=== PATIENT | male | born 1970 | race Caucasian/White ===

== ENCOUNTER 2023-07-15 07:57 | Observation (INO) | payer OTHER, SELFPAY ==
[2023-07-15] VITALS (14 sets, daily range): BP systolic 101–139; BP diastolic 63–95; PULSE 85–105; RESP 15–22; TEMP 36.4–37.1; O2SAT 93–100; BMI 29.5
--- NOTE | 2023-07-15 08:13 | EKG12_ITS ---
Test Reason : GENERAL Blood Pressure : / mmHG Vent. Rate : 097 BPM Atrial Rate : 097 BPM P-R Int : 156 ms QRS Dur : 080 ms QT Int : 324 ms P-R-T Axes : 013 -23 005 degrees QTc Int : 411 ms Normal sinus rhythm Inferior infarct , age undetermined Abnormal ECG Confirmed by QASIM MELARA, LIOR ([id number]), editorial project manager MEGAN GARCIA ([id number]) on 07/21/2023 7:02:51 AM Referred By: Confirmed By:SHRUTHI TRIPP MD
--- NOTE | 2023-07-15 08:15 | CT_ITS ---
STUDY: CTA CHEST REASON FOR EXAM: Male, 52 years old. Chest pain, tachycardia, suspect PE RADIATION DOSAGE (If Supplied By Facility): CTDIvol = ( 12.26 ) mGy, DLP = ( 401.15 ) mGycm TECHNIQUE: The examination was performed with the intravenous administration of IV 100mL Isovue-370. Post-processing of the angiographic images was performed, with multiplanar reformation and 3D reconstruction. Individualized dose optimization techniques were used for this CT. COMPARISON: None. FINDINGS: Small intraluminal filling defects in branches of the left upper lobe pulmonary artery. Normal thoracic aorta and visualized great vessels. There is no demonstrated aortic dissection. Normal heart and pericardium. Normal mediastinum. Normal hilar regions. Normal visualized trachea and bronchi. The lungs are well expanded. Small left pleural effusion with left basilar infiltrate. Normal chest wall structures. There are degenerative changes of thoracic spine. Normal visualized upper abdomen. CT/CTA Chest W/WO Contrast IMPRESSION: Small pulmonary emboli are seen in branches of the left upper lobe pulmonary artery. Small left pleural effusion with left basilar infiltrate. Electronically Signed: Hero Vasquez MD at 9:19 EST ,
--- NOTE | 2023-07-15 08:16 | EDS_ITS ---
HPI History of Present Illness Chief Complaint: Other, Pain/Inj Detail of Chief Complaint: Abrupt onset of pleuritic pain and shortness of breath this morning Informant: patient Onset/Context/Timing Onset: Hours Context: sudden Timing: Continuous Quality: Positive for Dyspnea on exertion; Negative for Orthopnea, PND or Wheezing Current Severity: Mild Maximum Severity: Moderate Worsened by: Exertion Relieved by: Nothing Associated Symptoms Negative for cough, rhinorrhea, post nasal drip, ear pain, fever, sore throat, subjective, chills, sweats, clear sputum, white sputum, yellow sputum or green sputum Chest Pain: Positive for Pleuritic (Posteriorly over the left lower lobe region) Narrative Narrative: Patient is a 52-year-old male with 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 He is presently on anticoagulant. He states he has not missed any doses. Father and 2 siblings have history of porphyruria. No known family history of breast cancer or lung cancer. Patient has no known history of cancer. His first DVT was diagnosed approximately 3 to 4 years ago. He denies any upper respiratory symptoms i.e. rhinorrhea, congestion, postnasal drainage sore throat. He denies cough. He denies fever, chills or night sweats. He denies abdominal pain, nausea, vomiting or diarrhea. He denies history of renal ureterolithiasis or family history of such. He den ies pain radiating to his groin. He denies dysuria, frequency, urgency or hematuria. There is no history of trauma. He denies leg pain, swelling or discoloration. PE Risk Factors: Positive for Prior DVT or PE; Negative for Cancer, OCP + Smoking + > 35, Recent immobilization, Recent surgery or Recent travel Prior similar symptoms: No Recent Illness/Hospitalization: No PFSH PFSH Home Medications apixaban 5 mg tablet (Eliquis) 5 mg PO Q12H 07/15/23 [History Last Taken 07/15/23] aspirin 81 mg tablet,delayed release (Adult Low Dose Aspirin) 81 mg PO DAILY 07/15/23 [History Last Taken 07/15/23] Allergy/AdvReac Type Severity Reaction Status Date / Time No Known Allergies Allergy Verified 07/15/23 08:02 Surgical History no surgical history no surgical history Social History (Updated 07/15/23 @ 08:[address] Ruy Herrera MD) household members: spouse Smoking Status: Never smoker substance use type: does not use ROS ROS ED Constitutional Constitutional ED: Denies chills, fever(s), sweats or weight loss Eyes Eyes: Denies blurry vision, change in vision or diplopia ENT ENT ED: Denies rhinorrhea or sore throat Cardiovascular Cardiovascular: Reports other Details: Pleuritic pain posteriorly over the area of the left lower lung field. ; Denies chest pain, orthopnea, palpitations, paroxysmal nocturnal dyspnea or racing heartbeat Respiratory/Chest Respiratory/Chest: Reports dyspnea and dyspnea on exertion; Denies cough, orthopnea, paroxysmal nocturnal dyspnea or sputum Gastrointestinal Gastrointestinal: Denies abdominal pain, melena, nausea or vomiting Genitourinary Genitourinary ED: Denies dysuria, hematuria or urinary frequency Musculoskeletal Musculoskeletal: Denies arthralgias or myalgias Integumentary Denies rash Neurologic Neurologic: Denies headache(s), paresthesias or weakness Endocrine Endocrinology: Denies cold intolerance or heat intolerance Hematologic/Lymphatic Hematologic/Lymphatic: Denies easy bleeding or easy bruising EXAM Physical Exam Const Vital Signs: 07/15/23 07:58 07/15/23 07:58 07/15/23 10:00 Temperature 97.7 F L Temperature Source Temporal Pulse Rate 105 H 97 Respiratory Rate 15 20 H Respiratory Effort Short of Breath Respiratory Pattern Tachypnea Blood Pressure 137/93 H 129/78 H Blood Pressure Mean 107 95 Pulse Ox 100 96 Oxygen Delivery Method Room Air Room Air 07/15/23 10:44 Temperature 97.6 F L Temperature Source Pulse Rate 91 Respiratory Rate 16 Respiratory Effort Respiratory Pattern Blood Pressure 134/78 H Blood Pressure Mean 96 Pulse Ox 99 Oxygen Delivery Method Positive well nourished and well developed Constitutional Narrative: Patient appears uncomfortable and is slightly tachypneic. He is breathing more rapidly than the 15 times per minute that was documented. He also was seen in shortly after he walked from triage. General Appearance ED: well developed; Negative for pallor HEENT Reports moist mucous membranes HEENT Narrative: Ears are normal. Nares are patent. atraumatic Eyes PERRL and EOMs intact bilaterally General Eye ED: Negative for pale conjunctiva or scleral icterus Neck no lymphadenopathy, supple, no meningeal signs and no JVD Resp normal respiratory effort and clear to auscultation bilaterally Resp Narrative: There is no tenderness over the back or flank area. Breath sounds are symmetric. Cardio regular rate, S1 normal heart sound, S2 normal heart sound and no murmurs Rate: tachycardic GI non-tender, non-distended and no masses Auscultation: normoactive bowel sounds Palpation: soft; Negative for hepatomegaly or splenomegaly Back/Spine no CVA tenderness Extremity normal to inspection Extremity Narrative: There is no asymmetry, swelling, discoloration, leg vein distention, palpable cords or tenderness along the distribution of the deep venous system. Neuro oriented x3, CN's II-XII intact bilaterally and no sensory deficits noted Rosenda Coma Scale: document GCS findings Spontaneous Obeys Commands Oriented 15 Sensorium / Orientation: alert Psych mental status grossly normal Skin no wounds and skin turgor normal General Skin Exam: Negative for jaundice or pallor Lesions: no lesions Rashes: no rashes Sepsis Attestation Possible Source of Sepsis: Pulmonary Supportive Findings: Patient does not have endorgan dysfunction. Lactate was normal. Therefore blood cultures were not obtained prior to administration of antibiotics. MDM MDM MDM Narrative Medical decision making narrative: With acute pleuritic pain dyspnea tachycardia prior history of 2 unprovoked blood clots concern patient has a PE. CTA was ordered to evaluate for PE. Chest x-ray was not obtained since patient has no abnormal oscillatory findings and no respiratory symptoms other than acute dyspnea with pleuritic chest pain. If patient has a blood clot we will talk to hematology since he is presently on anticoagulant and reports compliance. CBC was obtained to rule out anemia. Clinically he is not anemic. BMP to assess renal function. History & Record Review Additional record(s) reviewed:: No prior records (Only prior record as an outpatient ultrasound of the scrotum which revealed a inguinal hernia.) Lab Data Attestation: I reviewed the patient's lab results. Lab results narrative: White count is elevated with slight shift. H&H is normal. Basic metabolic panel is unremarkable. Glucose is 117 with normal CO2 anion gap. Lactate is normal at 1.6. Labs: Laboratory Results - last 24 hr 07/15/23 08:20 WBC 15.3 H RBC 5.52 Hgb 15.6 Hct 48.7 MCV 88.2 MCH 28.3 MCHC 32.0 RDW Std Deviation 38.8 RDW Coeff of Escobar 12.0 Plt Count 248 MPV 9.7 Immature Gran % (Auto) 0.500 Neut % (Auto) 85.0 H Lymph % (Auto) 7.7 L [place] % (Auto) 6.0 Eos % (Auto) 0.5 Baso % (Auto) 0.3 Absolute Neuts (auto) 13.0 H Absolute Lymphs (auto) 1.18 Nucleated RBC % 0 PT 15.8 H INR 1.3 APTT 32.5 Sodium 136 Potassium 4.2 Chloride 106 Carbon Dioxide 26.0 Anion Gap 4 L BUN 12 Creatinine 1.06 Estim Creat Clear Calc 64.12 Est GFR (MDRD) Af Amer 93 Est GFR (MDRD) Non-Af 77 BUN/Creatinine Ratio 11.3 Glucose 117 H Lactic Acid 1.6 Calcium 9.3 Radiography Diagnostic Testing: Clinical Impression(s) from Imaging Studies Chest CTA 07/15/23 08:15 IMPRESSION: Small pulmonary emboli are seen in branches of the left upper lobe pulmonary artery. Small left pleural effusion with left basilar infiltrate. Electronically Signed: Hero Vasquez MD at 9:19 EST , Per my review of the CTA there appears to be an effusion with infiltrate left lower lobe. There is 1 area of concern for possible DVT. Awaiting formal read by radiologist. EKG Initial EKG: Attestation: I personally reviewed and interpreted this EKG as follows: Interpretation: Sinus Rhythm (Rate is 97. IL interval is 156 ms. QRS duration 80 ms. QT duration 324 ms. [place] is normal. In my opinion the EKG is normal. Disagree with interpretation by computer) Prior: No Prior Management Discussion w/another healthcare provider: Hospitalist (Dr. Villatoro was made aware of patient's history, physical and recommendation by vascular. Patient to be admitted to PCU, full) and Traffic Administrator (Spoke with Dr. Cuellar's nurse practit ioner since he is in the OR. If admitted started on IV heparin. If he does not require admission Lovenox and they will see him urgently in the office.) Treatment and Re-Evaluation :: Patient was informed that he has a blood clot in the left lower lung as well as pneumonia. Patient is not tachypneic nor is he hypoxic. Will ambulate. If he does not desaturate will discharge with prescription for Lovenox and antibiotic. Comments:: Patient ambulated from restroom back to his room. Prior to getting his room the O2 sat dropped from 9596% to 84%. In light of this will start on heparin drip. He was treated with Rocephin and azithromycin for commune acquired pneumonia. Will speak with hospitalist and have them consult Dr. Cuellar regarding placement of [place] filter. Per his PA patient will need to be transition to Lovenox when he is discharged to home. Critical Care Time Critical Care Time: Yes Critical care time (excluding procedures): 30-74 minutes (22 minutes), Including time spent: (History, physical, documentation, independent interpretation laboratory results,), Discussing w/Patient &/or Family/Electrical And Radio Aircraft Mechanic, Discussing w/Consultants (Vascular surgery and hospitalist) and Arranging Admission or Transfer Discharge Plan Triage Chief Complaint: Other, Pain/Inj ED Provider: Ruy Herrera Dx/Rx/DC Orders Clinical Impression: Parapneumonic effusion, Sinus tachycardia seen on conveyor monitor, Hypoxia, Pulmonary embolus, Left lower lobe pneumonia Prescriptions: No Action Eliquis 5 mg tablet 5 mg PO Q12H aspirin [Adult Low Dose Aspirin] 81 mg tablet,delayed release (DR/EC) 81 mg PO DAILY Primary Care Provider: Risa Stratton Referrals: Care Physician,No Primary [Non-Staff] -
--- NOTE | 2023-07-15 08:18 | NURSING ---
NO OLD EKGS
[2023-07-15 08:31] LABS: Absolute Lymphocyte Count 1.18 X10^3/uL (0.83-4.51); Basophil# 0.04 X10^3/uL; Basophil% 0.3 % (0-1); Eosinophil# 0.07 X10^3/uL; Eosinophils% 0.5 % (0-5); Hematocrit 48.7 % (40-54); Hemoglobin 15.6 g/dL (13.0-16.5); Lymphocyte # 1.18 X10^3/ul (0.83-4.51); Lymphocyte % 7.7 % (19-41); Mean Corpuscular Hgb 28.3 pg (27.0-32.0); Mean Corpuscular Volume 88.2 fL (80-94); Mean Platelet Vol. 9.7 fl (6.2-12.0); Monocyte# 0.92 X10^3/uL; NRBC Flagged by Analyzer 0 % (0-5); Platelet Count 248 K/mm3 (150-450); RBC Distribution Width SD 38.8 fl (35.1-43.9); Red Blood Count 5.52 M/mm3 (4.6-6.2); White Blood Count 15.3 K/mm3 (4.4-11.0)
[2023-07-15 09:03] LABS: Anion Gap 4 (5-15); BUN 12 mg/dL (7-18); BUN/Creat Ratio 11.3 RATIO (10-20); Calcium,Total 9.3 mg/dL (8.5-10.1); Chloride 106 mmol/L (98-107); Creatinine, Serum 1.06 mg/dL (0.70-1.30); EST Glomerular Filtration Rate 77 mL/min (>60); Est Glom Filt Rate - Afr Amer 93 mL/min (>60); Estimated Creatinine Clearance 64.12 ml/min; Glucose 117 mg/dL (74-106); Potassium 4.2 mmol/L (3.5-5.1); Sodium Level 136 mmol/L (136-145)
[2023-07-15 09:07] LABS: Lactic Acid 1.6 mmol/L (0.4-1.9)
[2023-07-15 09:57] LABS: Partial Thromboplast Time 32.5 Seconds (24.1-36.2)
[2023-07-15] MEDS: Heparin Injection (Vial) 5,000 UNIT/ML VIAL 5000 UNIT IV (09:59)
[2023-07-15] MEDS: HEPARIN/D5w 25,000 UNITS 25,000 UNITS/250 ML IV.SOLN. 11 UNITS CONT INF (10:00)
[2023-07-15 10:01] LABS: International Normalized Ratio 1.3; Prothrombin Time (Protime)PT. 15.8 SECONDS (11.7-14.9)
[2023-07-15] MEDS: Ceftriaxone 2 GM in 0.9% Normal Saline (50mL MB+) 50 ML IV (10:33)
--- NOTE | 2023-07-15 10:40 | NURSING ---
DR BELINDA GAYTAN
--- NOTE | 2023-07-15 10:51 | NURSING ---
PCU BELINDA PULMONARY EMBOLUS, LLL PNEUMONIA, HYPOXIA
[2023-07-15] MEDS: Azithromycin 500 MG in Dextrose 5%-Water (250mL Bag) 250 ML 250 MG IV (11:05)
--- NOTE | 2023-07-15 12:51 | HP.PCM.HOS_ITS ---
HPI - General General Date of Admission: 07/15/23 Date of Service: 07/15/23 Chief Complaint: Pleuritic chest pain/shortness of breath HPI Narrative TRELL SETH, is a 52 M who presented to the emergency department at [facility] on 07/15/2023 complaining of chest pain and shortness of breath. Symptoms started on the morning of presentation. He has had no fever, cough, chills and had been feeling well up until the day of presentation just prior. He has a history of lower extremity DVTs that were initially diagnosed about 4 years ago. He was placed on treatment for 3 to 6 months and then went off anticoagulation. Unfortunately, he redeveloped thromboembolic event and was replaced back on Eliquis and has been compliant on Eliquis since. The patient does report that he had seen Dr. Harry previously for this but had not seen him recently. Vital signs on presentation showed temperature of 97.7, heart rate 105, blood pressure 137/93, respiratory rate has been anywhere from 15-20 and oxygen saturations at rest were 96 to 100% on room air however the patient had marked desaturation to 85 with minimal exertion. CBC showed a white count of 15.3 with a left shift however patient has no signs of infection. Coags were slightly elevated as would be expected with apixaban use and INR was 1.3. His chemistry panel was unremarkable. Lactic acid was 1.6. Troponin was 6. CTA of the chest was performed and demonstrated acute small pulmonary emboli within the branches of the left upper lobe of the pulmonary artery and a small left pleural effusion with a basilar infiltrate. I did discuss this with Dr. Harry as he has followed with him previously and it sounds as if that infiltrate and effusion where there previously and may be related to scarring. In the emergency department he was started on a heparin drip and admitted due to exertional hypoxia. [facility] Medical History (Updated 07/15/23 @ 17:[address] Mendy Villatoro DO) DVT (deep venous thrombosis) Pulmonary embolism on right TIA (transient ischemic attack) Home Medications apixaban 5 mg tablet (Eliquis) 5 mg PO BID blood thinner 07/15/23 [History Last Taken 07/15/23] ascorbic acid (vitamin C) 500 mg tablet (C-500) 500 mg PO DAILY supplement 07/26 [History Last Taken 07/15/23] aspirin 81 mg tablet,delayed release (Adult Low Dose Aspirin) 81 mg PO DAILY heart health 07/15/23 [History Last Taken 07/15/23] Allergy/AdvReac Type Severity Reaction Status Date / Time No Known Allergies Allergy Verified 07/15/23 08:02 Family History (Updated 07/15/23 @ 17:[address] Mendy Villatoro DO) Other DVT (deep vein thrombosis) in Leukemia Pancreatic cancer Surgical History Hx of elbow surgery Surgical History no surgical history Social History (Updated 07/15/23 @ 17:[address] Mendy Villatoro DO) household members: spouse housing: house Smoking Status: Current every day smoker tobacco type: smokeless tobacco alcohol intake: never substance use type: does not use ROS Constitutional Constitutional: Denies anorexia, change in weight, chills, fatigue, fever(s), malaise, night sweats, weakness or other Eyes Eyes: Denies blurry vision, change in eye color, change in vision, discharge from eye(s), double vision, erythema, eye pain, loss of vision or other ENT HEENT: Denies abnormal hearing, dysphagia, ear pain, epistaxis, headache(s), hearing loss, nasal congestion, nasal discharge, post nasal drip, sinus pressure, sore throat or other Cardiovascular Cardiovascular: Reports chest pain, dyspnea on exertion and other Details: pleuritic CP ; Denies claudication, edema, lightheadedness, orthopnea, palpitations, paroxysmal nocturnal dyspnea, rapid heart rate or syncope Respiratory/Chest Respiratory/Chest: Reports shortness of breath with exertion; Denies cough, dyspnea, excessive phlegm production, hemoptysis, productive cough, shortness of breath at rest, wheezing or other Gastrointestinal Gastrointestinal: Denies abdominal pain, coffee ground emesis, constipation, diarrhea, dyspepsia, hematemesis, hematochezia, loose stools, melena, nausea, vomiting or other Genitourinary Genitourinary: Denies burning urination, difficulty urinating, dysuria, hematuria, nocturia, urinary frequency, urinary hesitancy, urinary incontinence, urinary urgency or other Musculoskeletal Musculoskeletal: Denies arthralgias, back pain, joint pain, joint stiffness, joint swelling, myalgias, neck pain or other Neurologic Neurologic: Denies abnormal gait, abnormal speech, confusion, disequilibrium, dizziness, focal weakness, headache(s), numbness, paresthesias, seizure-like activity, seizures, syncope, tingling, tremor(s) or other Psychiatric Psychiatric: Denies anxiety, depression, homicidal ideation, suicidal ideation or other Hematologic/Lymphatic Hematologic/Lymphatic: Denies anemia, easy bleeding, easy bruising, lymphadenop athy or other Allergic/Immunologic Allergic/Immunologic: Denies rhinitis, hives, eczemia, asthma or other Vital Signs Vital Signs Vital Signs: 07/15/23 07:58 07/15/23 07:58 07/15/23 10:00 Temperature 97.7 F L Temperature Source Temporal Pulse Rate 105 H 97 Respiratory Rate 15 20 H Respiratory Effort Short of Breath Respiratory Pattern Tachypnea Blood Pressure 137/93 H 129/78 H Blood Pressure Mean 107 95 Blood Pressure Source Blood Pressure Position Blood Pressure Location Pulse Ox 100 96 Oxygen Delivery Method Room Air Room Air 07/15/23 10:44 07/15/23 10:45 07/15/23 11:45 Temperature 97.6 F L 97.8 F 98.8 F Temperature Source Temporal Temporal Pulse Rate 91 96 100 Respiratory Rate 16 16 19 H Respiratory Effort Respiratory Pattern Blood Pressure 134/78 H 134/79 H 123/88 H Blood Pressure Mean 96 97 99 Blood Pressure Source Blood Pressure Position Blood Pressure Location Pulse Ox 99 98 97 Oxygen Delivery Method Room Air Room Air 07/15/23 11:45 Temperature 98.8 F Temperature Source Temporal Pulse Rate 100 Respiratory Rate 19 H Respiratory Effort Respiratory Pattern Blood Pressure 123/88 H Blood Pressure Mean 99 Blood Pressure Source Monitor Blood Pressure Position Semi-Fowlers Blood Pressure Location Left Arm Pulse Ox 97 Oxygen Delivery Method Room Air Weight Weight: 75.75 kg Body Mass Index (BMI) 29.5 Physical Exam Const alert, oriented x3, no apparent distress and well nourished; Negative for average body habitus Constitutional Narrative: Overweight, pleasant, middle-aged, white male, lying in bed, at bedside, patient appears comfortable and nontoxic, currently on room air and oxygen saturations are stable however he is at rest HEENT normocephalic, head/scalp atraumatic and moist oral mucous membranes HEENT Narrative: Mild hearing loss, dentition is fair, Mallampati is 2, no thrush Resp normal respiratory effort, no retractions, no use of accessory muscles and clear to auscultation bilaterally Resp Narrative: Diminished but clear Auscultation: Negative for rales, rhonchi or wheezes Cardio regular rhythm, S1 normal heart sound, S2 normal heart sound, no murmurs, no rub, no gallops and no clicks Cardio Narrative: Mild tachycardia GI normal to inspection, nondistended, normoactive bowel sounds, soft to palpation and non-tender Extremity no clubbing, cyanosis or edema Extremity Narrative: Pedal pulses are 2+ Neuro oriented x3, moves all extremities and no focal motor deficits Speech: speech normal Psych affect normal Psych Narrative: Very pleasant, eye contact is good Results Lab / Micro Data 07/15/23 08:20 07/15/23 08:20 Labs: Laboratory Results - last 24 hr 07/15/23 08:20: WBC 15.3 H, RBC 5.52, Hgb 15.6, Hct 48.7, MCV 88.2, MCH 28.3, MCHC 32.0, RDW Std Deviation 38.8, RDW Coeff of Escobar 12.0, Plt Count 248, MPV 9.7, Immature Gran % (Auto) 0.500, Neut % (Auto) 85.0 H, Lymph % (Auto) 7.7 L, [place] % (Auto) 6.0, Eos % (Auto) 0.5, Baso % (Auto) 0.3, Absolute Neuts (auto) 13.0 H, Absolute Lymphs (auto) 1.18, Nucleated RBC % 0, PT 15.8 H, INR 1.3, APTT 32.5, Sodium 136, Potassium 4.2, Chloride 106, Carbon Dioxide 26.0, Anion Gap 4 L, BUN 12, Creatinine 1.06, Estim Creat Clear Calc 64.12, Est GFR (MDRD) Af Amer 93, Est GFR (MDRD) Non-Af 77, BUN/Creatinine Ratio 11.3, Glucose 117 H, Lactic Acid 1.6, Calcium 9.3 Imagaing Radiology Impression Chest CTA 07/15/23 08:15 IMPRESSION: Small pulmonary emboli are seen in branches of the left upper lobe pulmonary artery. Small left pleural effusion with left basilar infiltrate. Electronically Signed: Hero Vasquez MD at 9:19 EST , Assessment & Plan Assessment/Plan (1) Pulmonary embolus: (2) Hypoxia: (3) Sinus tachycardia seen on quality assurance monitor final: PLAN: Plan Acute PE -recurrent on Eliquis -heparin ggt with probable transition to coumadin but await Heme input -Anticipate discharge home with Lovenox and Coumadin for therapeutic overlap and outpatient follow-up with hematology -not echo with nml troponin -has had some work-up with regard to genetics but not complete due to needing ongoing anticoagulation -Has had anticardiolipin which was negative, antibeta 2 glycoprotein which was negative, antithrombin which was negative, protein C PCR which was within normal limits, prothrombin was unremarkable, factor V Leiden was not done -Patient does have strong family history of cancer however no current signs that he has any type of active cancer but would recommend outpatient screening after discharge -Heme consult pending-->d/w Dr. Harry as he knows the patient from previous Exertional hypoxia -CT is suggestive of a left lower lobe infiltrate however I reviewed this and it is fairly insignificant -Incentive spirometry -Acapella -Hold on antibiotics at this time as patient has no fever, cough, sputum prod uction or signs of pneumonia -Monitor clinically -Will check ambulatory pulse ox prior to discharge Leukocytosis -Mild elevation at 15.3 -Doubt related to infection but will monitor clinically -Repeat CBC in a.m. Tachycardia -Mild -Likely related to acute PE History of TIA -Continue home aspirin Tobacco abuse -Recommend cessation -Nicotine patch available DVT prophylaxis -Full anticoagulation with heparin drip CODE STATUS -Full code Charges/Coding Visit Charges Inpatient E&M: 29059 Init Hosp L2
[2023-07-15 13:20] LABS: Troponin-I HS 6 pg/mL (3.0-78.0)
[2023-07-15] MEDS: Ascorbic Acid 500 MG Tablet PO (13:58)
--- NOTE | 2023-07-15 16:01 | CHAPLAIN ---
Type of Pastoral Visit _x__ Initial Visit ___ Follow-up Visit ___ On-call Visit ___ General Patient Visit ___ Spiritual Assessment ___ Family Conference ___ Bereavement ___ Rapid Response ___ Code Blue ___ Other (describe below) Pastoral Care Referral From _x__ Patient ___ Family ___ Nurse ___ Physician ___ High School Foreign Language Teacher ___ Preconstruction Manager ___ Other (describe below) Sacrament/Intervention _x__ Active listening ___ Anointing ___ Episcopalian ___ Bereavement ___ Communion ___ Lizbet exploration ___ ___ Life review _x__ Prayer ___ Reconciliation ___ Sacrament of Sick ___ Supportive presence ___ Wedding ___ Other (describe below) Pastoral Comments patient is waiting in the ED for a room to open up; pt and spouse together in room; both relate that pt has similar issue as before and needs not only to have healing but to find cause of why it continues to happen; both are being patient with situation and welcome a prayer for support at this time; calm and reassurance of care given
[2023-07-15 16:28] LABS: Partial Thromboplast Time 89.8 Seconds (24.1-36.2)
[2023-07-15] MEDS: Acetaminophen 325 MG Tablet 650 MG PO (17:09)
--- NOTE | 2023-07-15 17:34 | VDLE_ITS ---
Reason For Study: PULMONARY EMBOLISM RIGHT LEFT GSV is normal. GSV is normal. CFV is compressible, spontaneous, phasic, CFV is compressible, spontaneous, phasic, competent and demonstrates normal competent, and demonstrates normal augmentation. augmentation. FV is compressible, spontaneous, phasic, FV is compressible, spontaneous, phasic, competent and demonstrates normal competent and demonstrates normal augmentation. augmentation. POP V is compressible, spontaneous, phasic, POP V is compressible, spontaneous, phasic, competent and demonstrates normal competent and demonstrates normal augmentation. augmentation. T/P Trunk is compressible. T/P Trunk is compressible. PTV is compressible. PTV is compressible. RT PerV is compressible. LT PerV is compressible. Procedure This is a venous duplex using B-mode, color flow and spectral Doppler. Exam performed portable in patient room. A preliminary report was called and/or faxed to [facility]. VL/Venous Duplex US - Abdifatah Extrem Interpretation Summary Deep veins of the bilateral lower extremities are patent and compressible segme ntally. There is no evidence of bilateral lower extremity deep vein thrombosis. The bilateral great saphenous veins appear patent and compressible segmentally. Ordering Physician: Mendy Villatoro Referring Physician: Risa Stratton; Anirudh Harry Performed By: Loretta Austin, ADDIE, RVT
[2023-07-15] MEDS: Sodium Chloride 0.65% 1 SPRAY SPRAY.BTL 2 SPRAY NASAL (20:20)
[2023-07-15 23:21] LABS: Partial Thromboplast Time 62.3 Seconds (24.1-36.2)
[2023-07-16 04:48] VITALS: BP 101/64; PULSE 89; RESP 17; TEMP 37.2; O2SAT 93
[2023-07-16 04:53] LABS: Absolute Neutrophil Count 6.2 X10^3/uL (2.0-7.7); Basophil# 0.04 X10^3/uL; Basophil% 0.4 % (0-1); Eosinophil# 0.15 X10^3/uL; Eosinophils% 1.7 % (0-5); Hematocrit 45.2 % (40-54); Hemoglobin 14.7 g/dL (13.0-16.5); Lymphocyte % 19.1 % (19-41); Mean Corp Hgb Conc 32.5 g/dL (32-36); Mean Corpuscular Hgb 28.2 pg (27.0-32.0); Mean Corpuscular Volume 86.8 fL (80-94); Mean Platelet Vol. 9.8 fl (6.2-12.0); NRBC Flagged by Analyzer 0 % (0-5); Neutrophil # 6.16 X10^3/uL (2.7-7.7); Neutrophil % 69.4 % (47-70); Platelet Count 208 K/mm3 (150-450); RBC Distribution Width CV 12.1 % (11.6-14.6); RBC Distribution Width SD 38.6 fl (35.1-43.9); Red Blood Count 5.21 M/mm3 (4.6-6.2); White Blood Count 8.9 K/mm3 (4.4-11.0)
[2023-07-16 05:04] LABS: Partial Thromboplast Time 71.9 Seconds (24.1-36.2)
[2023-07-16 05:29] LABS: ALB/GLOB Ratio 1.1 RATIO (0.9-2.4); AST(SGOT) 11 U/L (15-37); Alanine Aminotransfer ALT/SGPT 19 U/L (16-61); Albumin, Serum 3.2 g/dL (3.2-5.0); Alkaline Phosphatase 58 U/L (45-117); Anion Gap 7 (5-15); BUN 13 mg/dL (7-18); BUN/Creat Ratio 14.7 RATIO (10-20); Calcium,Total 8.2 mg/dL (8.5-10.1); Chloride 108 mmol/L (98-107); Creatinine, Serum 0.88 mg/dL (0.70-1.30); EST Glomerular Filtration Rate 95 mL/min (>60); Est Glom Filt Rate - Afr Amer 115 mL/min (>60); Estimated Creatinine Clearance 77.23 ml/min; Globulin 2.8 g/dL (2.2-4.2); Glucose 108 mg/dL (74-106); Magnesium 2.1 mg/dL (1.6-2.6); Phosphorus 2.6 mg/dL (2.5-4.9); Potassium 3.7 mmol/L (3.5-5.1); Sodium Level 140 mmol/L (136-145); Thyroid Stim Hormone (TSH) 2.47 uIU/mL (0.358-3.74)
[2023-07-16 05:58] VITALS: RESP 18
[2023-07-16 08:26] VITALS: O2SAT 94
[2023-07-16 09:12] LABS: D-Dimer Quantitative (DVT/PE) < 0.27 FEU/ug/m (0.27-0.49)
[2023-07-16 10:25] VITALS: BP 114/79; PULSE 89; RESP 16; TEMP 37.2; O2SAT 95
[2023-07-16] MEDS: 0.9% Saline Lock 10 ML Syringe IV (10:27)
[2023-07-16] MEDS: Ascorbic Acid 500 MG Tablet PO (10:27)
[2023-07-16] MEDS: Aspirin E.C. 81 MG Tablet PO (10:28)
[2023-07-16] MEDS: Enoxaparin 80 MG/0.8 ML Syringe SC (10:29)
[2023-07-16] MEDS: Influenza Virus Vac Quad 23-24 60 MCG/0.5 ML SYRINGE IM (11:29)
[2023-07-16 11:32] VITALS: O2SAT 93; O2SAT 95
--- NOTE | 2023-07-16 11:45 | CASEMGMT ---
RN CM Face to Face with patient for initial transition planning/care coordination assessment. RN CM introduced self and role at [facility]. Patient lying in bed, alert and oriented, at bedside. Patient willing to participate in assessment and is able to answer all questions appropriately. Care providers, pharmacy, and demographics verified. Patient wishes to discharge home, denies need for home health at this time. Patient states he has no further needs or concerns at this time. CM to follow for discharge planning needs that may arise. PCP: [facility]: [facility] oncologist Preferred Pharmacy: [facility] Insurance: MMO Prescription Benefit: yes Living Will/HPOA: none LNOK: Living Arrangements: Patient lives with in a single story home with 3 steps to enter. Patient is independent at home. Transportation: self, DME/HHC: Patient has shower chair, raised toilet, cane, walker at home. No previous HHC or SNF Disposition Plan: Patient to discharge home with family support and follow-up plan in place. Rhona SINGH, RN, CM
--- NOTE | 2023-07-16 11:56 | CHAPLAIN ---
Type of Pastoral Visit ___ Initial Visit _x__ Follow-up Visit ___ On-call Visit ___ General Patient Visit ___ Spiritual Assessment ___ Family Conference ___ Bereavement ___ Rapid Response ___ Code Blue ___ Other (describe below) Pastoral Care Referral From _x__ Patient ___ Family ___ Nurse ___ Physician ___ Preforming Machine Operator ___ Combined Rail Operator ___ Other (describe below) Sacrament/Intervention _x__ Active listening ___ Anointing ___ Mormon ___ Bereavement ___ Communion ___ Lizbet exploration ___ ___ Life review ___ Prayer ___ Reconciliation ___ Sacrament of Sick ___ Supportive presence ___ Wedding ___ Other (describe below) Pastoral Comments follow up to patient that was seen in ED yesterday; pt states that he is doing better and has hopes of going home today; family members are in the room; no other needs or concerns at this time; pt is eating his lunch
--- NOTE | 2023-07-16 12:15 | DS.PCM_ITS ---
Providers Date of Admission: 07/15/23 Date of Discharge: 07/16/23 Primary Care Physician: ALVINO. Risa Stratton NP-Tank Consultations 07/15/23 13:01 Consult: Oncology/Hematology Routine Consulting Provider: ANTOINE Hem/Onc [place] Reason for Consult: recurrent PE despite DOAC-Pt know to Dr. 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 Butler is a 52-year-old white male who presented to the emergency department at [facility] on 07/15/2023 complaining of chest pain and shortness of breath. He reported that the symptoms started that morning and he felt well the day prior. He had no fever, cough, chills, and had not had any sick contacts to his knowledge. 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 He ind icated he was placed on 3 to 6 months of Eliquis and then went off anticoagulation. Unfortunately, he redeveloped thromboembolic event and pulmonary emboli and was placed back on Eliquis and has been on Eliquis since that point in time. He reported compliance without missing any doses prior to presentation. The patient had previously seen oncology with a last visit being October but has not seen anybody since that point in time. Vital signs on presentation demonstrated temperature of 97.7, heart rate 105, blood pressure 137/93 and respiratory rate was anywhere from 15-20. Oxygen saturations were 96 to 100% at rest however he had marked desaturation with exertion dropping to 85%. His initial CBC showed a white count of 15.3 with a left shift however the patient had no signs of infection and his CBC was unremarkable on day 2 of his hospitalization. His initial lactic acid was 1.6 and his troponin was 6. CTA of his chest was performed and demonstrated small acute left upper lobe pul monary emboli and a left pleural effusion that was small and a possible left basilar infiltrate. I discussed the case with his grappler, Dr. Harry, and per discussion with him previous CAT scan did report a small effusion and infiltrate at that time as well. It was thought previously to be scarring. He was started on a heparin drip and admitted to the floor do it due to his exertional hypoxia. There was initial discussion about a filter placement however after discussion with hematology it was felt more prudent to transition him to Coumadin. I transitioned him from heparin to Lovenox subcu 80 mg twice daily. I discussed the case with Dr. Berry who saw him for hematology and he recommended continuing Lovenox 80 mg twice daily and starting Coumadin. We will start Coumadin 5 mg today and have asked him to follow-up with his outpatient primary care physician to obtain an INR on 07/18/2023. INR during his hospitalization was 1.3 with probable small elevation due to his Eliquis use. Per discussion with hematology we should probably push his INR to be between 2.5 and 3 ideally. We discussed a vitamin K diet and he was given pamphlet of information with regards to vitamin K intake and Coumadin use. Prescriptions for both the Lovenox and Coumadin were sent to his local pharmacy. We did do an ambulatory pulse ox prior to discharge and he was 95 to 100% on room air at rest and 93% with exertion again, I have asked him to follow-up with his primary care physician and obtain INR on Friday and to call and set up appointment to see hematology within the next month per availability. Lower extremity Dopplers were done to assess whether or not he is building a clot in his legs, however this does not change number operator and his discharge does not need to be held for result. Hematology is aware. He was able to be discharged home in stable condition on 07/16/2023. Discharge diagnoses: Acute left upper lobe pulmonary emboli Recurrent thromboembolic event despite apixaban use Exertional hypoxia-resolved Leukocytosis-resolved Tachycardia-resolved History of TIA Tobacco abuse Physical Exam Const alert, oriented x3, no apparent distress, no limitations, healthy appearing and well nourished; Negative for average body habitus Constitutional Narrative: Overweight, pleasant, middle-aged, white male, sitting up in bed, and mother at bedside, patient appears comfortable and nontoxic, remains on room air General Appearance: cooperative, comfortable, well kempt and well developed Orientation / Consciousness: awake, oriented to person, oriented to place and oriented to time Exam Limitations: no limitations Nutritional Appearance: overweight HEENT normocephalic, head/scalp atraumatic and moist oral mucous membranes HEENT Narrative: Mild hearing loss, Mallampati is 2, no thrush Eyes PERRL, EOMs intact bilaterally and conjunctivae normal Eyes Narrative: No scleral icterus Neck no lymphadenopathy and supple Neck Narrative: Acute midline, no thyroid enlargement Resp normal respiratory effort, no retractions, no use of accessory muscles and clear to auscultation bilaterally Resp Narrative: Diminished but clear Auscultation: Negative for rales, rhonchi or wheezes Cardio regular rate, regular rhythm, S1 normal heart sound, S2 normal heart sound, no murmurs, no rub, no gallops and no clicks GI normal to inspection, nondistended, normoactive bowel sounds, soft to palpation and non-tender Extremity no clubbing, cyanosis or edema Extremity Narrative: Pedal pulses are 2+ Skin no rashes or lesions noted, no wounds, skin turgor normal and no jaundice Neuro oriented x3, CN's II-XII intact bilaterally, moves all extremities and no focal motor deficits Speech: speech normal Psych affect normal Psych Narrative: Very pleasant, eye contact is good Weight / BMI Weight Weight: 75.75 kg Body Mass Index (BMI) 29.5 ABG / Lab / Microbiology Data 07/16/23 04:41 07/16/23 04:41 Laboratory: Laboratory Results - last 24 hr 07/15/23 08:20: Troponin I High Sens 6 07/15/23 15:55: APTT 89.8 H 07/15/23 22:45: APTT 62.3 H 07/16/23 04:41: WBC 8.9, RBC 5.21, Hgb 14.7, Hct 45.2, MCV 86.8, MCH 28.2, MCHC 32.5, RDW Std Deviation 38.6, RDW Coeff of Escobar 12.1, Plt Count 208, MPV 9.8, Immature Gran % (Auto) 0.400, Neut % (Auto) 69.4, Lymph % (Auto) 19.1, [place] % (Auto) 9.0, Eos % (Auto) 1.7, Baso % (Auto) 0.4, Absolute Neuts (auto) 6.2, Absolute Lymphs (auto) 1.70, Nucleated RBC % 0, APTT 71.9 H, D-Dimer Quant (PE/DVT) < 0.27 L, Sodium 140, Potassium 3.7, Chloride 108 H, Carbon Dioxide 25.0, Anion Gap 7, BUN 13, Creatinine 0.88, Estim Creat Clear Calc 77.23, Est GFR (MDRD) Af Amer 115, Est GFR (MDRD) Non-Af 95, BUN/Creatinine Ratio 14.7, Glucose 108 H, Calcium 8.2 L, Phosphorus 2.6, Magnesium 2.1, Total Bilirubin 0.60, AST 11 L, ALT 19, Alkaline Phosphatase 58, Total Protein 6.0 L, Albumin 3.2, Globulin 2.8, Albumin/Globulin Ratio 1.1, TSH 2.47 D/C Instructions Discharge Diet: No restrictions Discharge Activity: Return to Normal Activity Return to work on: 07/21/23 Meaningful Use Info Meaningful Use Diagnoses (Choose all that apply): None applicable Discharge Plan Admission Admit Date/Time: 07/15/23 12:54 Primary Reason for Your Visit: Exertional hypoxia Attending Provider: Mendy Villatoro Primary Care Provider: Risa Stratton Consulting Providers: Teofilo Merrill; Dewey Berry; Destinee Colón; Reece Flynn; Kylee Sal; Brian Hager; Anirudh Harry Instructions Patient Instructions: Vitamin K Diet for Warfarin, What to Know When Taking?Warfarin Additional Instructions / Restrictions: 1. Please call your primary care physician and let them know you have been started on Coumadin and need a follow-up INR done on 07/18/2023 2. Please continue both Lovenox and Coumadin until instructed otherwise by your primary care physician Discharge Orders/Prescriptions Prescriptions: New enoxaparin 80 mg/0.8 mL Syringe 80 mg subcut Q12 7 Days Qty: 11.2 0RF warfarin 5 mg tablet 5 mg PO DAILY Qty: 30 0RF Continued aspirin [Adult Low Dose Aspirin] 81 mg tablet,delayed release (DR/EC) 81 mg PO DAILY Hold Instructions: Until you are instructed to discontinue Lovenox and then restart aspirin ascorbic acid (vitamin C) [C-500] 500 mg tablet 500 mg PO DAILY Discontinued Eliquis 5 mg tablet 5 mg PO BID Referrals / Follow Up: Anirudh Harry DO [Med Staff - Active Staff] - Within 1 Month (Blood clots) Care Physician,No Primary [Non-Staff] - Risa Stratton NP-C [Primary Care Provider] - See Referral Note (Friday for INR testing) Disposition Disposition (needs filled in before D/C Order can be placed): Home, Self Care Charges/Coding Visit Charges Inpatient E&M: 95942 Disch Hosp >30min
--- NOTE | 2023-07-16 14:15 | CASEMGMT ---
Patient has order for discharge. Patient discharging on Lovenox. GALILEO CALHOUN called [facility]ie, cost of script is $53.80. GALILEO CM in to update patient and . Patient denied further questions or concerns. GALILEO CALHOUN updated nurse to complete teaching with patient.
[2023-07-16 14:16] VITALS: BP 113/77; PULSE 86; RESP 16; TEMP 37.2; O2SAT 97
--- NOTE | 2023-07-16 14:21 | PHA.DC.MC.R ---
Pharmacy [facility] Pharm[facility] Service has performed discharge medication reconciliation and counseling for this patient. 1. ENOXAPARIN 80MG SC Q12 2. WARFARIN 5MG PO DINNER The patient's discharge medication list was reviewed for discrepancies and discrepancies were resolved. The patient was counseled on the following discharge medications and changes in medications for homegoing were reviewed. The Reason for Use, instructions for use, and potential side effects were reviewed for all new medications. The patient's questions regarding all of their medications were answered. The patient was able to verbally demonstrate an understanding of their discharge medications. Medications at Discharge Home Medications ascorbic acid (vitamin C) 500 mg tablet (C-500) 500 mg PO DAILY supplement 07/15/23 aspirin 81 mg tablet,delayed release (Adult Low Dose Aspirin) 81 mg PO DAILY heart health 07/15/23 enoxaparin 80 mg/0.8 mL subcutaneous syringe 80 mg (0.8 mL) subcut Q12 7 days #11.2 mL 07/16/23 warfarin 5 mg tablet 5 mg PO DAILY #30 tabs 07/16/23
--- NOTE | 2023-07-16 15:12 | NURSING ---
Pt and spouse educated on lovenox injections at home. Instructions sent with patient along with discharge instructions. Patient and spouse understand and have no questions at this time.
== END 2023-07-16 15:17 | disposition home or self-care (01) ==
LOC: ED 08:32 → PCU 07-16 09:16
PROVIDERS: Specialist; Admitting Provider Internal Medicine; Emergency Provider Emergency Medicine; PCP Nurse Practitioner Family; Visit Provider Internal Medicine
DX: I26.99 Other pulmonary embolism without acute cor pulmonale (principal); R00.0 Tachycardia, unspecified; Z79.82 Long term (current) use of aspirin; R09.02 Hypoxemia; Z79.01 Long term (current) use of anticoagulants; Z86.718 Personal history of other venous thrombosis and embolism; Z86.73 Personal history of transient ischemic attack (TIA), and cerebral infarction without residual deficits; F17.220 Nicotine dependence, chewing tobacco, uncomplicated; Z23 Encounter for immunization
CPT/HCPCS: 36415; 71275; 80048; 80053; 83605; 83735; 84100; 84443; 84484; 85025; 85379; 85610; 85730; 93005; 93970; 96365; 96366; 96368; 96372; 96376; 99221; 99252; 99285; 99406; Q9967; 90686; A4216; G0378; G0463; J0696

== ENCOUNTER 2023-08-09 16:55 | Emergency (ER) | payer OTHER, SELFPAY ==
[2023-08-09 16:57] VITALS: BP 148/81; PULSE 82; RESP 18; TEMP 36.3; O2SAT 98; BMI 28.8
--- NOTE | 2023-08-09 17:24 | CT_ITS ---
STUDY: CT ABDOMEN AND PELVIS WITHOUT CONTRAST REASON FOR EXAM: Male, 52 years old. Hematuria RADIATION DOSAGE (If Supplied By Facility): CTDIvol = ( 8.26 ) mGy, DLP = ( 416.89 ) mGycm TECHNIQUE: Transaxial images were obtained from the dome of the diaphragm to the symphysis pubis without oral contrast, and without intravenous contrast. Sagittal and coronal images were reconstructed. Individualized dose optimization techniques were used for this CT. COMPARISON: None. FINDINGS: The visualized lung bases are unremarkable. The visualized portions of the heart are within normal limits. Normal liver. The gallbladder is contracted. Normal spleen. Normal pancreas. Normal bilateral adrenal glands. Normal right kidney. Normal left kidney. Normal visualized stomach. Normal small intestine. Normal colon. The appendix is visualized and appears normal. Normal abdominal aorta. Normal inferior vena cava. Normal retroperitoneum. Normal urinary bladder. Small bilateral fat-containing inguinal hernias. Normal osseous structures. CT/Abdomen/Pelvis without Cont IMPRESSION: No hydronephrosis or urinary tract calcifications. Electronically Signed: David Montgomery MD (Brooks) at 18:21 EST Reading Location ID and State: [facility] / [place] , Service support ,
--- NOTE | 2023-08-09 17:25 | EX.ED.GUMALE ---
HPI History of Present Illness Chief Complaint: Complaint Narrative Narrative: 52-year-old male past medical history of pulmonary emboli, on warfarin, presents with painless hematuria that started today. He and his states that he was on Lovenox and Coumadin and they stopped his Lovenox shots almost 2 weeks ago and kept him on Coumadin. They last checked his INR and it was therapeutic. This morning when he awoke, he noticed different colored urine. He urinated just before he came to the emergency department and states that it is bright red. He denies any back pain or lower abdominal pain. No fevers or chills, no other bleeding diathesis. He presents because of the bright red blood in his urine/painless hematuria [facility] Medical History DVT (deep venous thrombosis) Pulmonary embolism on right Pulmonary embolus TIA (transient ischemic attack) Home Medications ascorbic acid (vitamin C) 500 mg tablet (C-500) 500 mg PO DAILY supplement 07/15/23 [History Last Taken 07/15/23] aspirin 81 mg tablet,delayed release (Adult Low Dose Aspirin) 81 mg PO DAILY heart health 07/15/23 [History Last Taken 07/15/23] enoxaparin 80 mg/0.8 mL subcutaneous syringe 80 mg (0.8 mL) subcut Q12 7 days #11.2 mL 07/16/23 [Rx Last Taken Unknown] warfarin 5 mg tablet 5 mg PO DAILY #30 tabs 07/16/23 [Rx Last Taken Unknown] cephalexin 500 mg capsule 500 mg PO BID #14 caps 08/09/23 [Rx Last Taken Unknown] Allergy/AdvReac Type Severity Reaction Status Date / Time No Known Allergies Allergy Verified 08/09/23 16:57 Family History Other DVT (deep vein thrombosis) in Leukemia Pancreatic cancer Surgical History Hx of elbow surgery Social History household members: spouse housing: house Smoking Status: Former smoker alcohol intake: never substance use type: does not use ROS ROS ED ROS Narrative Constitutional: No fever, no chills. HEENT: No sore throat. No neck pain. No loss of vision. No rhinorrhea. Cardiovascular: No chest pain. No palpitations. No pedal edema. Respiratory: No cough, no shortness of breath. Abdominal: No abdominal pain. No nausea. No vomiting. Genitourinary: No dysuria. Discolored urine this morning, now painless hematuria. Musculoskeletal: No myalgias. No arthralgias. Neurologic: No headaches. No dizziness. No lightheadedness. Skin: No rash. No change in color. Bruising to stomach from Lovenox injections. Psychiatric: No depression. No anxiety. EXAM Physical Exam Narrative Exam Narrative: Afebrile. Vital signs noted. HEENT: Normocephalic. Atraumatic. PERRL, EOMI. Neck soft and supple. No point tenderness or step off. Cardiovascular: Regular rate and rhythm. No murmurs, rubs, or gallops appreciated. Respiratory: No tachypnea. Lungs clear to auscultation bilaterally. Gastrointestinal: Abdomen soft, nontender, with normoactive bowel sounds. No rebound or guarding. Positive ecchymosis with small hematoma on the left abdominal wall from previous Lovenox injections. Neurological: Awake. Alert. Nonfocal, nonlateralizing. Skin: No rash. Normal color. No pallor. Musculoskeletal: No pedal edema. Full range of motion extremities. Const Vital Signs: 08/09/23 16:57 Temperature 97.4 F L Temperature Source Temporal Pulse Rate 82 Respiratory Rate 18 Blood Pressure 148/81 H Blood Pressure Mean 103 Pulse Ox 98 Oxygen Delivery Method Room Air MDM MDM MDM Narrative Medical decision making narrative: In the differential diagnosis is UTI, spontaneous bleeding of surface vessel in the bladder, versus bladder mass. He may have a supratherapeutic INR as well. I will check a CBC to check his platelet counts and make sure he is not grossly anemic from his hematuria. Additionally, UA will be checked to check for cystitis. I do feel CT imaging of the abdomen and pelvis is indicated. I reviewed his laboratory work and he has a normal white count of 7.1, hemoglobin normal at 15.5 with hematocrit 47.8, platelet count normal at 279. BMP was reviewed and he has normal sodium of 141, BUN slightly elevated at 20 which I think is nonspecific with a normal creatinine of 1.0, glucose appropriately elevated at 96. INR is elevated above therapeutic at 3.2. He was told to hold his Coumadin for today and tomorrow and have it rechecked on Friday. I reviewed the CT report after reviewing the CT imaging, and there is no evidence of obstructing ureterolithiasis or kidney mass, or bladder mass noted that would cause his hematuria. While his initial urinalysis was obtained, and appeared grossly bloody, he had another urination while in the emergency department which is light yellow in color without evidence of gross blood. Urinalysis that was obtained and reviewed does show positive nitrites. There are greater than 100 RBCs and 5-10 WBCs. Although there is rare bacteria, I do feel that he may have more of a cystitis although there is none on CAT scan. Since he has a supratherapeutic INR I will start him on Keflex and give him his first dose in the emergency department and write him a prescription for a week. Urine culture was also sent. He is going to have his INR rechecked on Friday as stated above. As his hematuria has seemed to resolve, I do feel that he can be discharged and does not require bladder irrigation. Regardless, he was referred to urology. Return instructions to the emergency department were reviewed. Disposition is discharged home in stable condition. Patient and agreeable to the plan. History & Record Review Discussion w/independent historian: Patient and Family Lab Data Attestation: I reviewed the patient's lab results. Labs: Laboratory Results - last 24 hr 08/09/23 08/09/23 17:29 17:35 WBC 7.1 RBC 5.49 Hgb 15.5 Hct 47.8 MCV 87.1 MCH 28.2 MCHC 32.4 RDW Std Deviation 38.7 RDW Coeff of Escobar 12.1 Plt Count 279 MPV 9.7 Immature Gran % (Auto) 0.400 Neut % (Auto) 57.3 Lymph % (Auto) 26.5 [place] % (Auto) 11.7 H Eos % (Auto) 3.4 Baso % (Auto) 0.7 Absolute Neuts (auto) 4.1 Absolute Lymphs (auto) 1.88 Nucleated RBC % 0 PT 33.5 H INR 3.2 Sodium 141 Potassium 3.7 Chloride 110 H Carbon Dioxide 27.0 Anion Gap 4 L BUN 20 H Creatinine 1.01 Estim Creat Clear Calc 70.01 Est GFR (MDRD) Af Amer 99 Est GFR (MDRD) Non-Af 82 BUN/Creatinine Ratio 19.8 Glucose 96 Calcium 9.1 Urine Color Yellow Urine Clarity Cloudy Urine pH 6.0 Ur Specific [place] 1.020 Urine Protein 100 H Urine Glucose (UA) Normal Urine Ketones 5 H Urine Occult Blood 250 H Urine Nitrite Positive H Urine Bilirubin Negative Urine Urobilinogen 1 H Ur Leukocyte Esterase 100 H Urine RBC > 100 SEEN Urine WBC 5-10 SEEN Ur Squamous Epith Cells 0 SEEN Urine Bacteria RARE Urine Mucus 0 SEEN Radiography Diagnostic Testing: Clinical Impression(s) from Imaging Studies Abdomen/Pelvis CT 08/09/23 17:24 IMPRESSION: No hydronephrosis or urinary tract calcifications. Electronically Signed: David Montgomery MD ([place]) at 18:21 EST Reading Location ID and State: [facility] / [place] , Service support , Discharge Plan Triage Chief Complaint: Complaint ED Provider: Cuong Fitzpatrick Dx/Rx/DC Orders Clinical Impression: Hematuria, Supratherapeutic INR Instructions: ED Hematuria, ED Infec Bladder Cystitis Male Ch Prescriptions: New cephalexin 500 mg capsule 500 mg PO BID Qty: 14 0RF No Action aspirin [Adult Low Dose Aspirin] 81 mg tablet,delayed release (DR/EC) 81 mg PO DAILY Hold Instructions: Until you are instructed to discontinue Lovenox and then restart aspirin ascorbic acid (vitamin C) [C-500] 500 mg tablet 500 mg PO DAILY enoxaparin 80 mg/0.8 mL Syringe 80 mg subcut Q12 7 Days Qty: 11.2 0RF warfarin 5 mg tablet 5 mg PO DAILY Qty: 30 0RF Primary Care Provider: Risa Stratton Referrals: Huber Sierra MD [Med Staff - Active Staff] - 3-5 Days if not improving Risa Stratton NP-C [Primary Care Provider] - 2 Days Activity Restrictions/Additional Instructions: Hold your Coumadin today and tomorrow then have your INR rechecked on Friday as scheduled. You may be able to restart that on Friday. Take antibiotics as directed. You are given your first dose here in the emergency department. Return with increased bleeding, new or worsening symptoms. Your INR was 3.2 today. Being on antibiotics may cause this to increase, which is why you should have it rechecked on Friday. Disposition Disposition: Home, Self Care
[2023-08-09 17:43] LABS: Absolute Lymphocyte Count 1.88 X10^3/uL (0.83-4.51); Absolute Neutrophil Count 4.1 X10^3/uL (2.0-7.7); Basophil# 0.05 X10^3/uL; Basophil% 0.7 % (0-1); Eosinophil# 0.24 X10^3/uL; Eosinophils% 3.4 % (0-5); Hematocrit 47.8 % (40-54); Hemoglobin 15.5 g/dL (13.0-16.5); Lymphocyte # 1.88 X10^3/ul (0.83-4.51); Lymphocyte % 26.5 % (19-41); Mean Corp Hgb Conc 32.4 g/dL (32-36); Mean Corpuscular Hgb 28.2 pg (27.0-32.0); Mean Corpuscular Volume 87.1 fL (80-94); Mean Platelet Vol. 9.7 fl (6.2-12.0); Monocyte# 0.83 X10^3/uL; Monocyte% 11.7 % (0-10); NRBC Flagged by Analyzer 0 % (0-5); Neutrophil # 4.07 X10^3/uL (2.7-7.7); Neutrophil % 57.3 % (47-70); Platelet Count 279 K/mm3 (150-450); RBC Distribution Width CV 12.1 % (11.6-14.6); RBC Distribution Width SD 38.7 fl (35.1-43.9); Red Blood Count 5.49 M/mm3 (4.6-6.2); White Blood Count 7.1 K/mm3 (4.4-11.0)
[2023-08-09 17:59] LABS: International Normalized Ratio 3.2; Prothrombin Time (Protime)PT. 33.5 SECONDS (11.7-14.9)
--- OUTSIDE RECORDS SUMMARY | 2023-08-09 18:01 | XMS RPT_ITS | CCD ---
Author Name Unknown Address [address] [place] [address] Organization [facility] Care Team Providers Care Brick Off Bearer Name Role Phone Unavailable Primary Care Provider Unavailabl e Sharon Stratton CNP Primary Care Provider [phone] DEEDEE MORTON DO Primary Care Physician [phone] SHARON STRATTON Primary Care Unavailable MASCI ANIRUDH A Referring Unavailable GHANY, AHMED Referring Unavailable MASCI, ANIRUDH A Attending Unavailable GHANY, AHMED Referring Unavailable YAMILEANY, MACARENAMED Attending Unavailable SHARON STRATTON CAVALRY OFFICER Primary Care Unavailable SHARON STRATTON CAVALRY OFFICER Attending Unavailable SHARON STRATTON CAVALRY OFFICER Admitting Unavailable DEEDEE MORTON DO Consulting Unavailable SHARON STRATTON NP Primary Care Unavailable SHARON STRATTON CAVALRY OFFICER Attending Unavailable SHARON STRATTON CAVALRY OFFICER Admitting Unavailable PROVIDER, UNKNOWN Consulting Unavailable PROVIDER, UNKNOWN Consulting Unavailable SHARON STRATTON CAVALRY OFFICER Primary Care Unavailable SHARON STRATTON CAVALRY OFFICER Attending Unavailable SHARON STRATTON CAVALRY OFFICER Admitting Unavailable LISBETH NGUYỄN MD Primary Care Unavailable LISBETH NGUYỄN MD Attending Unavailable DEEDEE MORTON DO Consulting Unavailable DEEDEE MORTON DO Referring Unavailable LISBETH NGUYỄN MD Admitting Unavailable PROVIDER, UNKNOWN Consulting Unavailable PROVIDER, UNKNOWN Consulting Unavailable SHARON STRATTON CAVALRY OFFICER Attending Unavailable SHARON STRATTON CAVALRY OFFICER Admitting Unavailable SHARON STRATTON CAVALRY OFFICER Primary Care Unavailable Medications Current Medications Medication Drug Class(es) Dates Sig (Normalized) Sig (Original) aspirin 81 mg oral tablet (4 sources) Platelet Aggregation Inhibitor, Nonsteroidal Anti-inflammatory Drug Start: 03-01-2015 aspirin 81 mg oral tablet (chewable) Dose : 81 mg = 1 tab(s), Oral, qDayM, # 30 tab(s), 0 Refill(s) Start Date: 03/01/15 Status: Ordered Completed/Discontinued Medications Medication Drug Class(es) Dates Sig (Normalized) Sig (Original) apixaban 5 mg oral tablet (4 sources) Factor Xa Inhibitor Start: 11-23-2019 take 1 tablet by mouth every twelve hours ELIQUIS 5 mg tab(s) Take 5 mg by mouth q 12 HR. 0 10/16/2022 Active Problems Active Problems Problem Classification Problem Date Documented Date Episodic/Chronic Coagulation and hemorrhagic disorders (2 sources) Hypercoagulability state; Translations: [Other primary thrombophilia] Onset: 11-20-19 Chronic Diseases of white blood cells (1 source) Elevated white blood cell count, unspecified; Translations: [Elevated white blood cell count, unspecified] Onset: 10-15-19 Chronic Disorders of lipid metabolism (1 source) Pure hypercholesterolemia 01-26-2016 Chroni c Essential hypertension (1 source) Essential hypertension 01-26-2016 Chronic Other aftercare (1 source) 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 (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) use of anticoagulants; Translations: [buttermaker 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 (current) use of anticoagulants] Onset: 07-18-20 Episodic Other circulatory disease (1 source) History of transient ischemic attack; Translations: [Personal history of transient ischemic attack (TIA), and cerebral infarction without residual deficits] Episodic Phlebitis; thrombophlebitis and thromboembolism (4 sources) Acute embolism and thrombosis of unspecified deep veins of unspecified lower extremity; Translations: [Acute embolism and thrombosis of unspecified deep veins of left lower extremity] Onset: 10-15-19 Episodic Pulmonary heart disease (1 source) Chronic pulmonary embolism; Translations: [Chronic pulmonary embolism] Chronic Substance-related disorders (1 source) Nicotine dependence, chewing tobacco, uncomplicated; Translations: [Nicotine dependence, chewing tobacco, uncomplicated] Onset: 10-15-19 Chronic Past or Other Problems Problem Classification Problem Date Documented Da te Episodic/Chronic Immunizations and screening for infectious disease (1 source) Encounter for immunization; Translations: [Encounter for immunization] Onset: 10-14-2022 Episodic Nonspecific chest pain (2 sources) Chest pain, unspecified; Translations: [Chest pain, unspecified] Onset: 10-14-2022 Episodic Other aftercare (1 source) [facility] (current) use of aspirin; Translations: [buttermaker 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 (current) use of aspirin] Onset: 10-14-2022 Episodic Other circulatory disease (1 source) Personal history of transient ischemic attack (TIA), and cerebral infarction without residual deficits; Translations: [Personal history of transient ischemic attack (TIA), and cerebral infarction without residual deficits] Onset: 10-14-2022 Episodic Pulmonary heart disease (2 sources) Other pulmonary embolism without acute cor pulmonale; Translations: [Personal history of pulmonary embolism] Onset: 10-14-2022 Episodic Results Test Name Value Interpretation Reference Range Facil ity Vital Signs Date Time Vital Sign Value Performing Clinician Ayala moe 11-19-2022 15:58-0400 Body temperature 98.01 [degF] Anirudh Harry DO Work Phone: [facility] 11-19-2022 15:58-0400 Body weight 73.26 kg Anirudh Harry DO Work Phone: [facility] 11-19-2022 15:58-0400 Diastolic blood pressure 83 mm[Hg] Anirudh Harry DO Work Phone: [facility] 11-19-2022 15:58-0400 Heart rate 97 /min Anirudh Harry DO Work Phone: [facility] 11-19-2022 15:58-0400 Systolic blood pressure 138 mm[Hg] Anirudh Harry DO Work Phone: [facility] Encounters Encounter Date Encounter Type Care Provider Facility Start: 08-06-2023 ambulatory SHARON CAVALRY OFFICER [facility] Start: 07-29-2023 End: 07-29-2023 ambulatory SHARON CAVALRY OFFICER [facility] Start: 07-21-2023 End: 07-21-2023 ambulatory SHARON CAVALRY OFFICER [facility] Start: 07-18-2023 End: 07-18-2023 ambulatory DEEDEE OBWEN [facility] Start: 07-15-2023 Telephone encounter Anirudh mcneal DO Work Phone: Hematology/Oncology Start: 03-14-2023 End: 03-14-2023 Emergency department patient visit DR BRISSA ALEGRE MD [facility] Start: 11-20-2022 Telephone encounter Anirudh mcneal DO Work Phone: Hematology/Oncology Procedures Date Procedure Procedure Detail Performing Clinician Start: 10-14-2022 Urinalysis SHARON JARVIS MCGUIRE Plan of Treatment Date Care Activity Detail Author Start: 10-31-2025 DIABETES SCREEN DIABETES SCREEN [facility] Start: 10-31-2025 Diabetes Screening Diabetes Screenin g [facility] Start: 04-04-2023 Influenza vaccination Influenza Vacc ine (#1) [facility] Start: 11-19-2022 End: 01-19-2023 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] in Blood or Tissue by Molecular genetics method [facility] Work Phone: Immunizations Immunization Date Immunization Notes Care Provider Alexey nicole 10-16-2022 influenza virus vacc ine, unspecified formulation Anirudh Harry DO Work Phone: [facility] 08-04-2018 influenza virus vacc ine, unspecified formulation DR BRISSA ALEGRE MD [facility] Payers Date Payer Category Payer Unknown MMO M[employer] PPO [id number] 2022-Present [phone] [address] [place] [address] PPO [id number] 2022 Unknown [id number] 1970 Unknown [id number] 1970 Unknown [id number] 1968 Unknown [id number] 1968 Unknown [id number] 1970 Unknown [id number] Social History Date Type Detail Facility Tobacco smoking status MOIS Tobacco smoking consumption unknown [facility] Start: 1970 Sex Assigned At Not on file [facility] Start: 10-31-2022 Tobacco smoking status NHIS Never smoked tobacco [facility] Start: 10-31-2022 Tobacco use and exposure User of smokeless tobacco [facility] History of tobacco use Snuff User [facility] Start: 11-19-2022 Alcohol intake Current drinke r of alcohol (finding) [facility] Start: 10-31-2022 Alcohol Comment occ [facility] Tobacco Nicotine Use: ch ew daily. Exposure to Tobacco Smoke Lives with someone who smokes. Type: Oral (Snuff, Chew). [facility] Tobacco smoking status Smokes tobacco daily (finding) [facility] Sex Assigned At Sex [facility] Start: 10-31-2022 End: 11-19-2022 History of Social function [facility] Start: 10-31-2022 End: 11-19-2022 Tobacco use panel [facility] National Score (1-100), lower number is lower risk 54 [facility] Note 07-15-2023 Telephone Encounter - Ana Winston LPN - 07/15/2023 4:21 PM EST Note Date & Type Note Facility 07-15-2023 Miscellaneous Notes Formattin g of this note might be different from the original. [facility] calls, pt in ER, getting admitted to PCU. Calling req inpatient consult for recurrent PE on abixiban. Dr Berry instrumentation engineering technician. ER given Dr Berry cell phone number to contact for consult. Ana Winston LPN documented in this encounter [facility] Note 11-25-2022 Telephone Encounter - Lalita Garcia LPN - 11/25/2022 11:07 AM EDTTelephone Encounter - Fabiana Dent - 11/25/2022 11:02 AM EDTTelephone Encounter - Anirudh Harry DO - 11/20/2022 7:02 PM EDT Note Date & Type Note Facility 11-25-2022 Miscellaneous Notes Formattin g of this note might be different from the original. Office notes faxed to PCP as directed. Lalita Garcia LPN Pt returned call: Fax #: [phone] Left message on Sharon Viral DILLON voicemail looking for a fax number to fax office notes on a mutual pt. Lalita Garcia LPN Please fax a copy of my office visit note from Friday to his PCP. I cannot electronically send it. I recommend that she order a Cologuard test for the patient. Anirudh Harry DO documented in this encounter [facility] Progress note 11-19-2022 Note Date & Type Note Facility 11-19-2022 Note HNO ID: [id number] Author: Anirudh Harry DO Service: ? Author Type: Physician Type: Progress Notes Filed: 11/20/2022 7:01 PM Note Text: Hematologic problem(s): 1) Recurrent PE. 2) TIAs. HPI: The patient is a 52 yo male with no previous significant PMH TIAs (cannot recall details--was treated at [facility] in [place] about 9 years--he does remember not being able to undergo MRI because of claustrophobia--on ASA long-term) and VTE. About 3 years ago developed pain in left side. May have woke up with it. Wasn't causing dyspnea. [facility] and was found to have left sided PE. Started on apixaban. No duplex US legs. Was on it for about 6 months. 10/14/2022 developed left calf pain that extended into left abdomen and right lower chest. Chest pain felt like got hit with a baseball bat. CT evidently revealed b/l lower lobe PE. Tolerating apixaban well. No further chest pain. No dyspnea. No bleeding issues. PMH, medications and allergies personally reviewed by me today. Any changes documented in appropriate section. Social history: Chews tobacco. Occasional alcohol. 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 Three children. Family history: Maternal aunt--Strokes in her 60s. Father--Acute intermittent porphyria; VTE--left jugular vein DVT--no known provoking factors. Sister--Metastatic melanoma at age about 40. Was treated at the [facility] for several years. No treatment now. MGF--Pancreas cancer in his 70s. MGM-- of acute leukemia at age 52. Maternal uncle--Kidney caner. Maternal uncle--Bone cancer. Maternal aunt--Ovarian cancer at age 55. age 56. ROS: Constitutional: Denies episodes of fever and night sweats. Not significantly fatigued. Normal appetite. Neuro: Denies RASHID, vertigo, dizziness and imbalance. Denies symptoms of neuropathy. HEENT: No recent change in voice, vision or hearing (hearing loss both ears). Resp: Denies cough, wheeze and hemoptysis. Denies shortness of breath at rest. Denies MCPHERSON. CVS: Denies exertional chest pain, PND, orthopnea and LE edema. GI: Denies dysphagia and odynophagia. Denies n/v change in bowel habits and abdominal pain. No black or bloody stools. Takes a Pepto-Bismol tablet every evening for heartburn. : Denies dysuria or gross hematuria. No symptoms of bladder outlet obstruction. Endo: Denies hot flashes. Denies polyuria and polydipsia. Denies heat and cold intolerance. Musculoskeletal: Denies bone, back, joint and muscular pain. Derm: Denies rash. Denies jaundice and diffuse pruritis. Heme: Denies unusual bleeding and unexplained bruising. Psych: Normal mood. VTE Risk: Sex: Male. Smoker: No. BMI: . Family h/o VTE: Yes. Family h/o atherosclerotic disease: Yes. Family h/o cancer: Yes. See above. Hypercoagulation labs: Partial. Up to date on age and gender appropriate cancer screening studies: No. Transient risk factors: None known. PHYSICAL EXAM: Vitals: Blood pressure 138/83, pulse 97, temperature 36.7 ?C (98 ?F), temperature source Temporal, weight 73.3 kg (161 lb 8 oz). Well-appearing and in no acute distress. EYES: Sclerae are anicteric bilaterally.. LYMPHATIC: There is no palpable cervical, supraclavicular, axillary or inguinal adenopathy. RESPIRATORY: Inspiratory breath sounds are of normal intensity in all horton. No rales, wheezes or rhonchi. CARDIOVASCULAR: Rhythm is regular. ABDOMEN: The abdomen is nondistended. No organomegaly. No tenderness. Extremities: No swelling or edema. SKIN: No jaundice. NEUROLOGIC: bench shear operator II-XII are grossly intact. No focal motor weakness. LABORATORY DATA: Component Latest Ref Rng AND Units 10/31/2022 WBC 3.70 - 11.00 k/uL 9.16 RBC 4.20 - 6.00 m/uL 5.43 Hemoglobin 13.0 - 17.0 g/dL 15.6 Hematocrit 39.0 - 51.0 % 46.6 MCV 80.0 - 100.0 fL 85.8 MCH 26.0 - 34.0 pg 28.7 MCHC 30.5 - 36.0 g/dL 33.5 RDW-CV 11.5 - 15.0 % 12.2 Platelet Count 150 - 400 k/uL 276 MPV 9.0 - 12.7 fL 9.6 Neut% % 69.2 Abs Neut (ANC) 1.45 - 7.50 k/uL 6.33 Lymph% % 21.8 Abs Lymph 1.00 - 4.00 k/uL 2.00 Cook% % 7.3 Abs Cook <0.87 k/uL 0.67 Eosin% % 0.9 Abs Eosin <0.46 k/uL 0.08 Baso% % 0.5 Abs Baso <0.11 k/uL 0.05 Immature Gran % % 0.3 IMMATURE GRANS (ABS) <0.10 k/uL 0.03 NRBC /100 WBC 0.0 Absolute nRBC <0.01 k/uL <0.01 DTYPE Auto Protein, Total 6.3 - 8.0 g/dL 6.9 Albumin 3.9 - 4.9 g/dL 4.7 Calcium 8.5 - 10.2 mg/dL 9.9 Bilirubin, Total 0.2 - 1.3 mg/dL 0.5 Alkaline Phosphatase 38 - 113 U/L 74 AST 14 - 40 U/L 18 ALT 10 - 54 U/L 22 Glucose 74 - 99 mg/dL 87 BUN 9 - 24 mg/dL 13 Creatinine 0.73 - 1.22 mg/dL 0.97 Sodium 136 - 144 mmol/L 138 Potassium 3.7 - 5.1 mmol/L 4.4 Chloride 97 - 105 mmol/L 103 CO2 22 - 30 mmol/L 26 Anion Gap 9 - 18 mmol/L 9 eGFR >=60 mL/min/1.73mA? 93 PT Sec <13.1 sec 10.4 PT INR 0.9 - 1.3 1.0 Antithrombin Assay 84 - 138 % 103 Pro C Fun 76 - 147 % 111 Cardiolipin (more content not included)... [facility] History of Present illness Narrative 11-19-2022 Anirudh Harry, - 11/19/2022 4:13 PM EDT Note Date & Type Note Facility 11-19-2022 History of Presen t illness Narrative Hematologic problem(s): 1) Recurrent PE. 2) TIAs. HPI: The patient is a 52 yo male with no previous significant H TIAs (cannot recall details--was treated at [facility] in [place] about 9 years--he does remember not being able to undergo MRI because of claustrophobia--on ASA long-term) and VTE. About 3 years ago developed pain in left side. May have woke up with it. Wasn't causing dyspnea. Went to ED [facility] and was found to have left sided PE. Started on apixaban. No duplex US legs. Was on it for about 6 months. 10/14/2022 developed left calf pain that extended into left abdomen and right lower chest. Chest pain felt like got hit with a baseball bat. CT evidently revealed b/l lower lobe PE. Tolerating apixaban well. No further chest pain. No dyspnea. No bleeding issues. PMH, medications and allergies personally reviewed by me today. Any changes documented in appropriate section. Social history: Chews tobacco. Occasional alcohol. 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 Three children. Family history: Maternal aunt--Strokes in her 60s. Father--Acute intermittent porphyria; VTE--left jugular vein DVT--no known provoking factors. Sister--Metastatic melanoma at age about 40. Was treated at the [facility] for several years. No treatment now. MGF--Pancreas cancer in his 70s. MGM-- of acute leukemia at age 52. Maternal uncle--Kidney caner. Maternal uncle--Bone cancer. Maternal aunt--Ovarian cancer at age 55. age 56. ROS: Constitutional: Denies episodes of fever and night sweats. Not significantly fatigued. Normal appetite. Neuro: Denies RASHID, vertigo, dizziness and imbalance. Denies symptoms of neuropathy. HEENT: No recent change in voice, vision or hearing (hearing loss both ears). Resp: Denies cough, wheeze and hemoptysis. Denies shortness of breath at rest. Denies MCPHERSON. CVS: Denies exertional chest pain, PND, orthopnea and LE edema. GI: Denies dysphagia and odynophagia. Denies n/v change in bowel habits and abdominal pain. No black or bloody stools. Takes a Pepto-Bismol tablet every evening for heartburn. : Denies dysuria or gross hematuria. No symptoms of bladder outlet obstruction. Endo: Denies hot flashes. Denies polyuria and polydipsia. Denies heat and cold intolerance. Musculoskeletal: Denies bone, back, joint and muscular pain. Derm: Denies rash. Denies jaundice and diffuse pruritis. Heme: Denies unusual bleeding and unexplained bruising. Psych: Normal mood. VTE Risk: Sex: Male. Smoker: No. BMI: . Family h/o VTE: Yes. Family h/o atherosclerotic disease: Yes. Family h/o cancer: Yes. See above. Hypercoagulation labs: Partial. Up to date on age and gender appropriate cancer screening studies: No. Transient risk factors: None known. PHYSICAL EXAM: Vitals: Blood pressure 138/83, pulse 97, temperature 36.7 C (98 F), temperature source Temporal, weight 73.3 kg (161 lb 8 oz). Well-appearing and in no acute distress. EYES: Sclerae are anicteric bilaterally.. LYMPHATIC: There is no palpable cervical, supraclavicular, axillary or inguinal adenopathy. RESPIRATORY: Inspiratory breath sounds are of normal intensity in all horton. No rales, wheezes or rhonchi. CARDIOVASCULAR: Rhythm is regular. ABDOMEN: The abdomen is nondistended. No organomegaly. No tenderness. Extremities: No swelling or edema. SKIN: No jaundice. NEUROLOGIC: bench shear operator II-XII are grossly intact. No focal motor weakness. LABORATORY DATA: Component Latest Ref Rng & Units 10/31/2022 WBC 3.70 - 11.00 k/uL 9.16 RBC 4.20 - 6.00 m/uL 5.43 Hemoglobin 13.0 - 17.0 g/dL 15.6 Hematocrit 39.0 - 51.0 % 46.6 MCV 80.0 - 100.0 fL 85.8 MCH 26.0 - 34.0 pg 28.7 MCHC 30.5 - 36.0 g/dL 33.5 RDW-CV 11.5 - 15.0 % 12.2 Platelet Count 150 - 400 k/uL 276 MPV 9.0 - 12.7 fL 9.6 Neut% % 69.2 Abs Neut (ANC) 1.45 - 7.50 k/uL 6.33 Lymph% % 21.8 Abs Lymph 1.00 - 4.00 k/uL 2.00 Cook% % 7.3 Abs Cook <0.87 k/uL 0.67 Eosin% % 0.9 Abs Eosin <0.46 k/uL 0.08 Baso% % 0.5 Abs Baso <0.11 k/uL 0.05 Immature Gran % % 0.3 IMMATURE GRANS (ABS) <0.10 k/uL 0.03 NRBC /100 WBC 0.0 Absolute nRBC <0.01 k/uL <0.01 DTYPE Auto Protein, Total 6.3 - 8.0 g/dL 6.9 Albumin 3.9 - 4.9 g/dL 4.7 Calcium 8.5 - 10.2 mg/dL 9.9 Bilirubin, Total 0.2 - 1.3 mg/dL 0.5 Alkaline Phosphatase 38 - 113 U/L 74 AST 14 - 40 U/L 18 ALT 10 - 54 U/L 22 Glucose 74 - 99 mg/dL 87 BUN 9 - 24 mg/dL 13 Creatinine 0.73 - 1.22 mg/dL 0.97 Sodium 136 - 144 mmol/L 138 Potassium 3.7 - 5.1 mmol/L 4.4 Chloride 97 - 105 mmol/L 103 CO2 22 - 30 mmol/L 26 Anion Gap 9 - 18 mmol/L 9 eGFR >=60 mL/min/1.73m 93 PT Sec <13.1 sec 10.4 PT INR 0.9 - 1.3 1.0 Antithrombin Assay 84 - 138 % 103 Pro C Fun 76 - 147 % 111 Cardiolipin Ab, IgA <12.0 APL <9.0 Cardiolipin Ab, IgG <15.0 GPL <9.0 Cardiolipin Ab, IgM <12.5 MPL 9.6 ASSESSMENT/PLAN: (I27.82) Chronic pulmonary embolism without acute cor pulmonale, unspecified pulmonary embolism type (HCC) (primary encounter diagnosis) (D68.59) Primary hypercoagulable state (HCC) (Z86.73) History of transient ischemic attack (TIA) Assessment: -The patient is a 52-year-old male who has a history of recurrent, unprovoked pulmonary emboli. Most recent event was associated with left lower extremity DVT. He also has a history of TIA the details of which are not currently available. He has no history of diabetes or hypertension (albeit blood pressure when taken in this office on 2 occasions was elevated). -Reviewed lab results previously ordered by Dr. Brandt. -I discussed with the patient family important to continue to rule out possible underlying antiphospholipid antibody syndrome. -Also discussed with him need for general age and gender appropriate cancer screening work-up. He has not previously had screening PSA or colonoscopy. Because of his need for continued anticoagulation, I recommended Cologuard. Following a full 6 months of anticoagulation he could hold for several days for colonoscopy. If Cologuard positive then he would require a colonoscopy sooner potentially with Lovenox bridging. Plan: -Check antibodies to beta glycoprotein. -Check PCR for factor V Leiden and prothrombin gene mutation. -We will ask his PCP to order Cologuard testing. -Check PSA today. -Continue apixaban. -Will try to get records of his admission for TIA from [facility]. -Will check with genetic counseling if genetic testing indicated in light of his family history of pancreas and ovarian cancer. -Follow-up in 6 months at which time we will plan to hold anticoagulation and obtain lupus anticoagulant testing. I spent a total of 40 minutes on the date of the service which included preparing to see the patient, [id number] patient care, completing clinical documentation, obtaining and/or reviewing separately obtained history, performing a medically appropriate examination, counseling and educating the patient/family/caregiver, ordering medications, tests, or procedures, and communicating results to the patient/family/caregiver. Anirudh Harry DO documented in this encounter [facility] Progress note 10-31-2022 Note Date & Type Note Facility 10-31-2022 Note HNO ID: [id number] Author: Jewell Brandt MD Service: ? Author Type: Physician Type: Progress Notes Filed: 10/31/2022 2:39 PM Note Text: SERVICE DATE: October 31, 2022 CHIEF COMPLAINT: Trell Seth is a 52 year old male referred by , for my opinion regarding the management of recurrent pulmonary emboli. The impression and plan will be communicated back via the EMR or under separate cover letter if necessary. PMH, medications and allergies personally reviewed by me today. Any changes documented in appropriate section.. History was obtained from the patient and from review of the patient's old medical records. HISTORY OF PRESENT ILLNESS: Very pleasant 52-year-old white gentleman who is here with his for evaluation and management of recurrent pulmonary emboli. Patient had first episode of PE 3 years ago. To the best of description it was unprovoked. He was instructed to stop anticoagulation after 8 months or so. He was on Eliquis at the time. Most recently he noticed cramps in his left lower extremity. Several hours later started to experience sudden onset of pleuritic chest pain. PE was confirmed at ED by CT PE. He has been on Eliquis since at 5 mg twice daily. Patient is active and not obese or overweight. He chews tobacco. He thinks his father had jugular vein thrombosis. No other family history of thromboemboli Diagnostic Studies: Reviewed PAST MEDICAL HISTORY: PAST MEDICAL HISTORY Diagnosis Date TIA (transient ischemic attack) PAST SURGICAL HISTORY: PAST SURGICAL HISTORY Procedure Laterality Date MUSC/TENDON REPAIR EACH; ARM/ELBOW Right 2005 CURRENT MEDICATIONS: ELIQUIS 5 mg tab(s) Take 5 mg by mouth q 12 HR. ascorbic acid, vitamin C, (VITAMIN C) 500 mg tablet Take 500 mg by mouth once daily. aspirin, enteric coated (ASPIRIN, ENTERIC COATED) 81 mg EC tablet Take 81 mg by mouth once daily. ALLERGIES/INTOLERANCES: ALLERGIES No Known Allergies FAMILY HISTORY: FAMILY HISTORY Problem Relation Age of Onset Multiple Sclerosis Mother Emphysema Father other (porphyria) Father Skin Cancer Sister No Known Problems Sister other (other) Brother No Known Problems Brother Cancer Paternal Grandfather SOCIAL HISTORY: Social History Tobacco Use Smoking status: Never Smokeless tobacco: Current Types: Snuff Vaping Use Vaping Use: Never used Substance Use Topics Alcohol use: Yes Comment: occ Drug use: Never ROS: Pleuritic chest pain which was initial symptom has subsided Lower extremity cramps have also subsided No dyspnea cough or hemoptysis No bleeding either epistaxis, bleeding from the gums hemoptysis,, hematemesis, hematochezia or melena or hematuria PHYSICAL EXAM: BP 143/91 Pulse 91 Temp 36.7 ?C (98.1 ?F) Ht 160.8 cm (5' 3.29 ) Wt 73 kg (161 lb) SpO2 96% BMI 28.26 kg/m2 Body mass index is 28.26 kg/m?. ECO No lymphadenopathy Lungs are clear to auscultation percussion No JVD S3 or S4 No lower extremity edema or disparity in the calf sizes DATA REVIEW: I personally reviewed the patient's data and medical records. PERTINENT LABS: Reviewed PERTINENT IMAGING: Reviewed ASSESSMENT AND Plan Recurrent PE. For sure has clinically hypercoagulable status. We will check pertinent labs for hypercoagulability then make most definitive recommendations. Most likely will be a lifetime anticoagulation but I will review the results of testing with the patient and his then make the decision The patient was able to ask questions and these were answered in detail. Thank you for the opportunity of participating in the care of this delightful gentleman. Jewell Brandt MD cc: No primary care provider on file. [facility] Telephone Encounter - Yessi Mims - 10/30/2022 3:42 PM EDTTelephone Encounter - Fabiana Dent - 10/29/2022 2:02 PM EDTTelephone Encounter - Lalita Garcia LPN - 10/29/2022 1:14 PM EDT Note Date & Type Note Facility 10-30-2022 Miscellaneous Notes Formattin g of this note might be different from the original. Patient scheduled 1st attempt: LM When pt returns call please assist in scheduling first [employer] apt with [employer] that works. DX:BLOOD CLOTS/ REF PROV SHARON ORTIZPARUL* Please schedule first available with Dr. Brandt, hx blood clots PCP requesting hematology work up. Chart placed in cupboard. Lalita Garcia LPN documented in this encounter [facility] Evaluation + Plan note Note Date & Type Note Facility Evaluation + Plan note No data available for this section [facility] Evaluation note Note Date & Type Note Facility documented in this encounter [facility] Discharge instructions Note Date & Type Note Facility Hospital Discharge instructions No data available for this section [facility] Progress note Note Date & Type Note Facility Progress note No data available for this section [facility] Summary Purpose Family History No Family History Records FoundNo Family History Records Found No data available for this section No Family History Records FoundNo Family History Records Found Advance Directives No Advanced Directives Records FoundNo Advanced Directives Records FoundNo Advanced Directives Records FoundNo Advanced Directives Records Found Reason for Referral Specialty Diagnoses / Procedures Referred By Contact Referred To Contact MOLECULAR & FUNCTIONAL IMAGING Diagnoses Primary hypercoagulable state (HCC) Procedures FACTOR V LEIDEN/PCR F5 COAGULATION FACTOR V ANAL LEIDEN VARIANT Anirudh Harry, DO [address] [place] [address] Molecular & Functional Imaging [address] [place] [id number] Referral ID Status Reason Start Date Expiration Date Visits Requested Visits Authorized [id number] Waiting for Online Response PCP Requested Referral Auto-Generate d Referral 11/19/2022 02/17/2023 1 1 Additional Source Comments (unrecognized sect ion and content) No Status Records FoundNo Status Records FoundNo Status Records FoundNo Status Records Found INFORMATION SOURCE (unrecogn ized section and content) DATE CREATED AUTHOR AUTHOR'S ORGANIZ ATION 11/25/2019 [facility] ([place]) DATE CREATED AUTHOR AUTHOR'S ORGANIZ ATION 07/20/2023 [facility] DATE CREATED AUTHOR AUTHOR'S ORGANIZ ATION 08/07/2023 [facility] Source Comments (unrecognize d section and content) In the event this informatio n is protected by the Federal Confidentiality of Alcohol and Drug Abuse Patient Records regulations: The Federal rules restrict any use of the information to criminally investigate or prosecute any alcohol or drug abuse patient.[facility] the event this information is protected by the Federal Confidentiality of Alcohol and Drug Abuse Patient Records regulations: The Federal rules restrict any use of the information to criminally investigate or prosecute any alcohol or drug abuse patient.[facility] the event this information is protected by the Federal Confidentiality of Alcohol and Drug Abuse Patient Records regulations: The Federal rules restrict any use of the information to criminally investigate or prosecute any alcohol or drug abuse patient.[facility] the event this information is protected by the Federal Confidentiality of Alcohol and Drug Abuse Patient Records regulations: The Federal rules restrict any use of the information to criminally investigate or prosecute any alcohol or drug abuse patient.[facility] Reason for Visit (unrecogniz ed section and content) Reason Comments Established Patient Reason Comments Follow Up Fax OV note to PCP Care Teams (unrecognized sec tion and content) [employer] Relationship Specialty Start Date End Date Sharon Stratton CNP [address] [place] [address] PCP - General Family Medicine 11/19/22 [employer] Bearer Relationship Specialty Start Date End Date Sharon Stratton CNP [address] [place] [address] PCP - General Family Medicine 11/19/22 FOR RECORDS PERTAINING TO PATIENTS WHO ARE OR HAVE BEEN ENROLLED IN A CHEMICAL DEPENDENCY/SUBSTANCEABUSE PROGRAM, SOME INFORMATION MAY BE OMITTED. This clinical summary was aggregated from multiple sources. Caution should be exercised in using it in the provision of clinical care. This summary normalizes information from multiple sources, and as a consequence, information in this document may materially change the coding, format and clinical context of patient data. In addition, data may be omitted in some cases. CLINICAL DECISIONS SHOULD BE BASED ON THE PRIMARY CLINICAL RECORDS. [facility]. provides no warranty or guarantee of the accuracy or completeness of information in this document.
[2023-08-09 18:03] LABS: Anion Gap 4 (5-15); BUN 20 mg/dL (7-18); BUN/Creat Ratio 19.8 RATIO (10-20); Calcium,Total 9.1 mg/dL (8.5-10.1); Chloride 110 mmol/L (98-107); Creatinine, Serum 1.01 mg/dL (0.70-1.30); EST Glomerular Filtration Rate 82 mL/min (>60); Est Glom Filt Rate - Afr Amer 99 mL/min (>60); Estimated Creatinine Clearance 70.01 ml/min; Glucose 96 mg/dL (74-106); Potassium 3.7 mmol/L (3.5-5.1); Sodium Level 141 mmol/L (136-145)
[2023-08-09] MEDS: 0.9% Normal Saline (1000mL) 1,000 ML 1000 ML IV (18:26)
[2023-08-09 18:31] LABS: Mucous, Urine 0 SEEN /hpf (<or=2+); Squamous Epithelial Cells - UA 0 SEEN /hpf (0-5)
[2023-08-09 18:33] LABS: Glucose, Dipstick Normal (Normal); Ketone-Dipstick 5 mg/dl (Negative); Leukocyte Esterase-Dipstick 100 /ul (Negative); Nitrite-Dipstick Positive (Negative); Occult Blood-Urine 250 /ul (Negative); Protein-Dipstick 100 mg/dl (Negative); Urine Bilirubin Dipstick Negative (Negative); Urine Clarity Cloudy (Clear); Urine Urobilinogen 1 mg/dl (Normal)
[2023-08-09 18:41] LABS: Color, Urine Yellow (Yellow)
[2023-08-09 18:43] LABS: Red Blood Cells-Urine > 100 SEEN /hpf (0-5); White Blood Cells 5-10 SEEN /hpf (0-5)
[2023-08-09 18:44] LABS: Bacteria RARE /hpf (None Seen)
[2023-08-09] MEDS: Cephalexin 250 MG Capsule 500 MG PO (19:00)
== END 2023-08-09 19:05 | disposition home or self-care (01) ==
PROVIDERS: Emergency Provider Emergency Medicine; PCP Nurse Practitioner Family; Visit Provider Emergency Medicine
DX: R31.9 Hematuria, unspecified (principal); R79.1 Abnormal coagulation profile; Z79.82 Long term (current) use of aspirin; Z79.01 Long term (current) use of anticoagulants; Z87.891 Personal history of nicotine dependence; Z86.711 Personal history of pulmonary embolism; Z86.718 Personal history of other venous thrombosis and embolism; Z86.73 Personal history of transient ischemic attack (TIA), and cerebral infarction without residual deficits
CPT/HCPCS: 74176; 80048; 81001; 85025; 85610; 87086; 96360; 99283; J7030; A4216

== ENCOUNTER 2023-08-28 18:50 | Emergency (ER) | payer OTHER, SELFPAY ==
[2023-08-28 18:50] VITALS: BP 146/91; PULSE 77; RESP 16; TEMP 36.7; O2SAT 96; BMI 28.6
--- NOTE | 2023-08-28 19:33 | CT_ITS ---
STUDY: CTA CHEST REASON FOR EXAM: Male, 52 years old. hematoma, cp RADIATION DOSAGE (If Supplied By Facility): CTDIvol = ( 12.38 ) mGy, DLP = ( 411.49 ) mGycm TECHNIQUE: The examination was performed with the intravenous administration of IV 100mL Isovue-370. Post-processing of the angiographic images was performed, with multiplanar reformation and 3D reconstruction. Individualized dose optimization techniques were used for this CT. COMPARISON: None. FINDINGS: Normal enhancement of the main pulmonary artery and right and left pulmonary arteries. Normal enhancement of the bilateral peripheral pulmonary arteries. There is no demonstrated pulmonary embolism. Normal thoracic aorta and visualized great vessels. There is no demonstrated aortic dissection. Normal heart and pericardium. Normal mediastinum. Normal hilar regions. Normal visualized trachea and bronchi. The lungs are well expanded. Minor atelectasis within the dependent portion of the upper and lower lobes.. No focal infiltration or pulmonary nodule Normal pleura. Normal chest wall structures. Dorsal spine demonstrates minor spondylosis. No evidence for acute vertebral fracture. There is an old incompletely fused fracture of the left posterior 11th rib Normal visualized upper abdomen. Previously noted pulmonary emboli not visualized at this time CT/CTA Chest W/WO Contrast IMPRESSION: Minor atelectasis within the dependent portion of the lungs.. Old incompletely healed fracture of the left posterior 11th rib. No acute fracture identified Electronically Signed: Pio Dhillon MD at 20:35 EST ,
--- OUTSIDE RECORDS SUMMARY | 2023-08-28 19:43 | XMS RPT_ITS | CCD ---
Author Name Unknown Address [email or web address] [place] [address] Organization [facility] Care Team Providers Care Therapeutic Case Manager Name Role Phone Unavailable Primary Care Provider Unavailabl e Ungerer CODING AND REIMBURSEMENT SPECIALIST, Sharon D Primary Care Provider DEEDEE MORTON DO Primary Care Physician [phone] UNGERER, SHARON BUSINESS ADMINISTRATION TEACHER Admitting Unavailable UNGERER, SHARON BUSINESS ADMINISTRATION TEACHER Primary Care Unavailable DIANAERER, SHARON BUSINESS ADMINISTRATION TEACHER Attending Unavailable DIANAERER, SHARON BUSINESS ADMINISTRATION TEACHER Attending Unavailable DEEDEE MORTON DO Consulting Unavailable DIANAERER, SHARON BUSINESS ADMINISTRATION TEACHER Admitting Unavailable UNGERER, SHARON BUSINESS ADMINISTRATION TEACHER Primary Care Unavailable PROVIDER, UNKNOWN Consulting Unavailable PROVIDER, UNKNOWN Consulting Unavailable DIANAERER, SHARON BUSINESS ADMINISTRATION TEACHER Attending Unavailable DIANAERER, SHARON BUSINESS ADMINISTRATION TEACHER Admitting Unavailable DIANAERER, SHARON BUSINESS ADMINISTRATION TEACHER Primary Care Unavailable LISBETH NGUYỄN MD Primary Care Unavailable LISBETH NGUYỄN MD Attending Unavailable DEEDEE MORTON DO Consulting Unavailable DEEDEE MORTON DO Referring Unavailable LISBETH NGUYỄN MD Admitting Unavailable PROVIDER, UNKNOWN Consulting Unavailable PROVIDER, UNKNOWN Consulting Unavailable UNGERER, SHARON BUSINESS ADMINISTRATION TEACHER Admitting Unavailable UNGERER, SHARON BUSINESS ADMINISTRATION TEACHER Primary Care Unavailable UNGERER, SHARON BUSINESS ADMINISTRATION TEACHER Attending Unavailable UNGERER, SHARON BUSINESS ADMINISTRATION TEACHER Attending Unavailable UNGERER, SHARON BUSINESS ADMINISTRATION TEACHER Admitting Unavailable UNGERER, SHARON BUSINESS ADMINISTRATION TEACHER Primary Care Unavailable UNGERER, SHARON BUSINESS ADMINISTRATION TEACHER Admitting Unavailable UNGERER, SHARON BUSINESS ADMINISTRATION TEACHER Primary Care Unavailable DIANAERER, SHARON BUSINESS ADMINISTRATION TEACHER Attending Unavailable EDGARD MOON Attending Unavailable ANIRUDH HARRY Referring Unavailable ANIRUDH HARRY Attending Unavailable SHARON STRATTON Primary Care Unavailable ANIRUDH HARRY Referring Unavailable SHARON STRATTON Primary Care Unavailable EDGARD MOON Referring Unavailable ANIRUDH HARRY Attending Unavailable EDGARD MOON Referring Unavailable Medications Current Medications Medication Drug Class(es) [...] hypertension 01-26-2016 Chronic Other aftercare (1 source) exterminator helper termite (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) use of anticoagulants; Translations: [penitentiary (current) use of anticoagulants] Onset: 07-18-20 Episodic [...] Onset: 10-14-2022 Episodic Other aftercare (1 source) penitentiary (current) use of aspirin; Translations: [exterminator helper termite (current) use of aspirin] Onset: 10-14-2022 Episodic [...] 98.01 [degF] Anirudh Harry DO Work Phone: [facility] 11-19-2022 15:58-0400 Body weight 73.26 kg Anirudh Harry DO Work Phone: [facility] 11-19-2022 15:58-0400 Diastolic blood pressure 83 mm[Hg] Anirudh Harry DO Work Phone: [facility] 11-19-2022 15:58-0400 Heart rate 97 /min Anirudh Harry DO Work Phone: [facility] 11-19-2022 15:58-0400 Systolic blood pressure 138 mm[Hg] Anirudh Harry DO Work Phone: [facility] Encounters Encounter Date Encounter Type Care Provider Facility Start: 08-26-2023 End: 08-26-2023 ambulatory ANIRUDH HARRY Facility:[facility] Start: 08-21-2023 ambulatory SHARON BUSINESS ADMINISTRATION TEACHER [facility] Start: 08-19-2023 End: 08-19-2023 ambulatory SHARON BUSINESS ADMINISTRATION TEACHER [facility] Start: 08-11-2023 End: 08-11-2023 ambulatory SHARON BUSINESS ADMINISTRATION TEACHER [facility] Start: 07-29-2023 End: 07-29-2023 ambulatory SHARON BUSINESS ADMINISTRATION TEACHER [facility] Start: 07-21-2023 End: 07-21-2023 ambulatory SHARON BUSINESS ADMINISTRATION TEACHER [facility] Start: 07-18-2023 End: 07-18-2023 ambulatory SHARON BUSINESS ADMINISTRATION TEACHER [facility] Start: 07-15-2023 Telephone encounter Anirudh mcneal DO Work Phone: Hematology/Oncology Start: 03-14-2023 End: 03-14-2023 Emergency department patient visit DR BRISSA ALEGRE MD [facility] Start: 11-20-2022 Telephone encounter Anirudh mcneal DO Work Phone: Hematology/Oncology Procedures Date Procedure Procedure Detail Performing Clinician Start: 10-14-2022 Urinalysis SHARON MCGUIRE Plan of Treatment Date Care Activity Detail Author Start: 10-31-2025 DIABETES SCREEN DIABETES SCREEN [facility] Start: 10-31-2025 Diabetes Screening Diabetes Screenin g [facility] Start: 04-04-2023 Influenza vaccination Influenza Vacc ine (#1) [facility] Start: 11-19-2022 End: 01-19-2023 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] in Blood or Tissue by Molecular genetics method [facility] Work Phone: Immunizations Immunization Date Immunization Notes Care Provider Alexey nicole 10-16-2022 influenza virus vacc ine, unspecified formulation Anirudh Harry DO Work Phone: [facility] 08-04-2018 influenza virus vacc ine, unspecified formulation DR BRISSA ALEGRE MD [facility] Payers Date Payer Category Payer Unknown [employer] PPO [id number] 2022-Present [phone] [address] [place] [address] PPO [id number] 2022 Unknown [id number] 1968 Unknown [id number] 1968 Unknown [id number] 1968 Unknown [id number] 1968 Unknown [id number] 1968 Unknown [id number] 1968 Unknown [id number] 1968 Unknown [id number] Social History Date Type Detail Facility Tobacco smoking status PAIS Tobacco smoking consumption unknown [facility] Start: 1970 Sex Assigned At Not on file [facility] Start: 10-31-2022 Tobacco smoking status PAIS Never smoked tobacco [facility] Start: 10-31-2022 Tobacco use and exposure User of smokeless tobacco [facility] History of tobacco use Snuff User [facility] Start: 11-19-2022 Alcohol intake Current drinke r of alcohol (finding) [facility] Start: 10-31-2022 Alcohol Comment occ [facility] Tobacco Nicotine Use: ch ew daily. Exposure to Tobacco Smoke Lives with someone who smokes. Type: Oral (Snuff, Chew). [facility] Tobacco smoking status Smokes tobacco daily (finding) [facility] Sex Assigned At Sex [facility] Start: 10-31-2022 End: 11-19-2022 History of Social function [facility] Start: 10-31-2022 End: 11-19-2022 Tobacco use panel [facility] National Score (1-100), lower number is lower risk 56 [facility] Note 07-15-2023 Telephone Encounter - Ana Winston LPN - 07/15/2023 4:21 PM EST Note Date & Type Note Facility 07-15-2023 Miscellaneous Notes Formattin g of this note might be different from the original. [facility] calls, pt in ER, getting admitted to PCU. Calling req inpatient consult for recurrent PE on abixiban. Dr Berry shoulder boner. ER given Dr Berry cell phone number to contact for consult. Ana Winston LPN documented in this encounter [facility] Note 11-25-2022 Telephone Encounter - Lalita Garcia [...] Garcia LPN Pt returned call: Fax #: [phone] Left message on Sharon Stratton CNP voicemail looking for a fax number to fax office notes on a mutual pt. Lalita Garcia LPN Please fax a copy of my office visit note from Friday to his PCP. I cannot electronically send it. I recommend that she order a Cologuard test for the patient. Anirudh Harry DO documented in this encounter [facility] Progress note 11-19-2022 Note Date & Type Note Facility 11-19-2022 Note HNO ID: [id number] Author: Anirudh Harry DO Service: ? Author Type: Physician Type: Progress Notes Filed: 11/20/2022 7:01 PM Note Text: Hematologic problem(s): 1) Recurrent PE. 2) TIAs. 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 About 3 years ago developed pain in left side. May have woke up with it. Wasn't causing dyspnea. Went to ED at [facility] and was found to have left sided [...] section. Social history: Chews tobacco. Occasional alcohol. 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. Three children. Family history: Maternal aunt--Strokes in her 60s. Father--Acute intermittent porphyria; VTE--left jugular vein DVT--no known provoking factors. Sister--Metastatic melanoma at age about 40. Was treated at the [facility] for several years. No treatment now. MGF--Pancreas [...] swelling or edema. SKIN: No jaundice. NEUROLOGIC: search planner II-XII are grossly intact. No focal motor [...] Abs Lymph 1.00 - 4.00 k/uL 2.00 Cherry% % 7.3 Abs Cherry <0.87 k/uL 0.67 Eosin% % 0.9 Abs [...] % 111 Cardiolipin (more content not included)... [facility] History of Present illness Narrative 11-19-2022 Anirudh Luong Piero, DO - 11/19/2022 4:13 PM EDT Note Date & Type Note Facility 11-19-2022 History of Presen t illness Narrative Hematologic problem(s): 1) Recurrent PE. 2) TIAs. 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 About 3 years ago developed pain in left side. May have woke up with it. Wasn't causing dyspnea. Went to ED at [facility] and was found to have left sided [...] section. Social history: Chews tobacco. Occasional alcohol. 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. Three children. Family history: Maternal aunt--Strokes in her 60s. Father--Acute intermittent porphyria; VTE--left jugular vein DVT--no known provoking factors. Sister--Metastatic melanoma at age about 40. Was treated at the [facility] for several years. No treatment now. MGF--Pancreas [...] swelling or edema. SKIN: No jaundice. NEUROLOGIC: search planner II-XII are grossly intact. No focal motor [...] Abs Lymph 1.00 - 4.00 k/uL 2.00 Cherry% % 7.3 Abs Cherry <0.87 k/uL 0.67 Eosin% % 0.9 Abs [...] -Reviewed lab results previously ordered by Dr. Moon. -I discussed with the patient family important [...] records of his admission for TIA from [facility]. -Will check with genetic counseling if genetic testing indicated in light of his family history of pancreas and ovarian cancer. -Follow-up in 6 months at which time we will plan to hold anticoagulation and obtain lupus anticoagulant testing. I spent a total of 40 minutes on the date of the service which included preparing to see the patient, [id number] patient care, completing clinical documentation, obtaining and/or reviewing separately obtained history, performing a medically appropriate examination, counseling and educating the patient/family/caregiver, ordering medications, tests, or procedures, and communicating results to the patient/family/caregiver. Anirudh Harry DO documented in this encounter [facility] Progress note 10-31-2022 Note Date & Type Note Facility 10-31-2022 Note HNO ID: [id number] Author: Edgard Moon MD Service: ? Author Type: Physician Type: [...] Laterality Date MUSC/TENDON REPAIR EACH; ARM/ELBOW Right 2004 CURRENT MEDICATIONS: ELIQUIS 5 mg tab(s) Take [...] in the care of this delightful gentleman. Edgard Moon MD cc: No primary care provider on file. [facility] Note 10-30-2022 Telephone Encounter - Yessi Mims [...] returns call please assist in scheduling first BUSINESS ADMINISTRATION TEACHER apt with Karly that works. DX:BLOOD CLOTS/ REF PROV SHARON KULDIP* Please schedule first available with Dr. Moon, esther blood clots PCP requesting hematology work up. Chart placed in cupboard. Lalita Garcia LPN documented in this encounter [facility] Evaluation + Plan note Note Date & Type Note Facility Evaluation + Plan note No data available for this section [facility] Evaluation note Note Date & Type Note Facility documented in this encounter [facility] Discharge instructions Note Date & Type Note Facility Hospital Discharge instructions No data available for this section [facility] Progress note Note Date & Type Note Facility Progress note No data available for this section [facility] Summary Purpose Family History No Family History [...] LEIDEN VARIANT Anirudh Harry, DO [address] [place] [address] Molecular & Functional Imaging [address] [place] [address] Referral ID Status Reason Start Date Expiration Date Visits Requested Visits Authorized [id number] Waiting for Online Response PCP Requested Referral Auto-Generate d Referral 11/19/2022 02/17/2023 1 1 Additional Source Comments (unrecognized sect ion and content) No Status Records FoundNo Status Records FoundNo Status Records FoundNo Status Records Found INFORMATION SOURCE (unrecogn ized section and content) DATE CREATED AUTHOR AUTHOR'S ORGANIZ ATION 11/25/2019 [facility] ([place] DATE CREATED AUTHOR AUTHOR'S ORGANIZ ATION 08/22/2023 [facility] DATE CREATED AUTHOR AUTHOR'S ORGANIZ ATION 08/27/2023 [facility] Source Comments (unrecognize d section and content) In the event this informatio n is protected by the Federal Confidentiality of Alcohol and Drug Abuse Patient Records regulations: The Federal rules restrict any use of the information to criminally investigate or prosecute any alcohol or drug abuse patient.[facility] the event this information is protected by the Federal Confidentiality of Alcohol and Drug Abuse Patient Records regulations: The Federal rules restrict any use of the information to criminally investigate or prosecute any alcohol or drug abuse patient.[facility] the event this information is protected by the Federal Confidentiality of Alcohol and Drug Abuse Patient Records regulations: The Federal rules restrict any use of the information to criminally investigate or prosecute any alcohol or drug abuse patient.[facility] the event this information is protected by the Federal Confidentiality of Alcohol and Drug Abuse Patient Records regulations: The Federal rules restrict any use of the information to criminally investigate or prosecute any alcohol or drug abuse patient.[facility] Reason for Visit (unrecogniz ed section and content) Reason Comments Established Patient Reason Comments Follow Up Fax OV note to PCP Care Teams (unrecognized sec tion and content) Therapeutic Case Manager Relationship Specialty Start Date End Date Sharon Stratton, WILMA [address] [place] [address] PCP - General Family Medicine 11/19/22 Therapeutic Case Manager Relationship Specialty Start Date End Date Sharon Stratton CNP [address] [place] [address] PCP - General Family Medicine 11/19/22 FOR [...] BE BASED ON THE PRIMARY CLINICAL RECORDS. [facility] [employer] [facility]. provides no warranty or guarantee of the accuracy or completeness of information in this document.
[2023-08-28 19:52] LABS: International Normalized Ratio 2.6; Prothrombin Time (Protime)PT. 27.7 SECONDS (11.7-14.9)
[2023-08-28 19:58] LABS: Anion Gap 6 (5-15); BUN 17 mg/dL (7-18); BUN/Creat Ratio 16.7 RATIO (10-20); Calcium,Total 9.3 mg/dL (8.5-10.1); Chloride 108 mmol/L (98-107); Creatinine, Serum 1.02 mg/dL (0.70-1.30); EST Glomerular Filtration Rate 81 mL/min (>60); Est Glom Filt Rate - Afr Amer 98 mL/min (>60); Estimated Creatinine Clearance 77.03 ml/min; Glucose 107 mg/dL (74-106); Potassium 3.9 mmol/L (3.5-5.1); Sodium Level 140 mmol/L (136-145)
--- NOTE | 2023-08-28 20:45 | EDS_ITS ---
HPI History of Present Illness Chief Complaint: Chest Other Informant: patient Narrative Narrative: Patient presents with bruising to his right chest wall and some right lower lateral rib pain. He is currently on Coumadin for history of DVT and PE. He is not member hitting his chest on anything. With his increased pain to the right lateral ribs he is concerned he may have another pulmonary embolism. He states his last INR check was on the 16. He was therapeutic at that time. [facility] Medical History DVT (deep venous thrombosis) Pulmonary embolism on right Pulmonary embolus TIA (transient ischemic attack) Home Medications ascorbic acid (vitamin C) 500 mg tablet (C-500) 500 mg PO DAILY supplement 07/15/23 [History Last Taken 07/15/23] aspirin 81 mg tablet,delayed release (Adult Low Dose Aspirin) 81 mg PO DAILY heart health 07/15/23 [History Last Taken 07/15/23] enoxaparin 80 mg/0.8 mL subcutaneous syringe 80 mg (0.8 mL) subcut Q12 7 days #11.2 mL 07/16/23 [Rx Last Taken Unknown] warfarin 5 mg tablet 5 mg PO DAILY #30 tabs 07/16/23 [Rx Last Taken Unknown] cephalexin 500 mg capsule 500 mg PO BID #14 caps 08/09/23 [Rx Last Taken Unknown] Allergy/AdvReac Type Severity Reaction Status Date / Time No Known Allergies Allergy Verified 08/28/23 18:50 Family History Other DVT (deep vein thrombosis) in Leukemia Pancreatic cancer Surgical History Hx of elbow surgery Social History household members: spouse housing: house Smoking Status: Former smoker alcohol intake: never substance use type: does not use ROS ROS ED Constitutional Constitutional ED: Denies chills or fever(s) ENT ENT ED: Denies rhinorrhea or sore throat Cardiovascular Cardiovascular: Reports chest pain; Denies palpitations Respiratory/Chest Respiratory/Chest: Denies cough or dyspnea Gastrointestinal Gastrointestinal: Denies abdominal pain, nausea or vomiting Musculoskeletal Musculoskeletal: Denies back pain or extremity pain Integumentary Reports other Details: Bruising to right chest wall ; Denies Abrasions or rash Neurologic Neurologic: Denies headache(s) or weakness Psychiatric Psychiatric: Denies anxiety or depression Allergic/Immunologic Allergic/Immunologic ED: Denies lip swelling or urticaria EXAM Physical Exam Const Vital Signs: 08/28/23 18:50 08/28/23 19:18 Temperature 98.1 F Temperature Source Temporal Pulse Rate 77 Respiratory Rate 16 Respiratory Pattern Normal Blood Pressure 146/91 H Blood Pressure Mean 109 Pulse Ox 96 Positive well nourished and well developed General Appearance ED: well developed HEENT Reports moist mucous membranes Eyes EOMs intact bilaterally Chest Wall Chest Narrative: Bruising with palpable hematoma to the right anterior chest wall measuring approximately 3 to 4 cm in diameter. No overlying erythema or warmth. No evidence of abscess. Resp normal respiratory effort and clear to auscultation bilaterally Cardio regular rate and regular rhythm GI non-tender Palpation: soft Extremity normal to inspection Neuro oriented x3 and no sensory deficits noted Motor Exam: strength 5/5 throughout Psych mental status grossly normal MDM MDM MDM Narrative Medical decision making narrative: IV line is established. INR and BMP obtained. CTA of the chest ordered to evaluate for chest wall hematoma versus mass as well as potential recurrent PE given his concerns. History & Record Review Discussion w/independent historian: Patient and Significant other Additional record(s) reviewed:: Prior labs Lab Data Attestation: I reviewed the patient's lab results. Labs: Laboratory Results - last 24 hr 08/28/23 19:05 PT 27.7 H INR 2.6 Sodium 140 Potassium 3.9 Chloride 108 H Carbon Dioxide 26.0 Anion Gap 6 BUN 17 Creatinine 1.02 Estim Creat Clear Calc 77.03 Est GFR (MDRD) Af Amer 98 Est GFR (MDRD) Non-Af 81 BUN/Creatinine Ratio 16.7 Glucose 107 H Calcium 9.3 Radiography Diagnostic Testing: Clinical Impression(s) from Imaging Studies Chest CTA 08/28/23 19:33 IMPRESSION: Minor atelectasis within the dependent portion of the lungs.. Old incompletely healed fracture of the left posterior 11th rib. No acute fracture identified Electronically Signed: Pio Dhillon MD at 20:35 EST , Treatment and Re-Evaluation :: INR is therapeutic at 2.6. He will continue his current dosing. Chemistry studies unremarkable with normal renal function. CTA of the chest reveals some atelectasis with no other acute findings. There is an old incompletely healed rib fracture. No evidence of pulmonary embolism. I did review the chest wall with the patient has bruising. There is some stranding in the soft tissue but I do not appreciate any fluid collection or mass. Patient is to continue his current Coumadin dosing and monitor his symptoms. He was advised that the hematoma will take some time to reabsorb. Return instructions were given. Discharge Plan Triage Chief Complaint: Chest Other ED Provider: Latoya Adam Dx/Rx/DC Orders Clinical Impression: Chest wall hematoma Instructions: ED Chest Wall Contusion, ED Hematoma Prescriptions: No Action cephalexin 500 mg capsule 500 mg PO BID Qty: 14 0RF aspirin [Adult Low Dose Aspirin] 81 mg tablet,delayed release (DR/EC) 81 mg PO DAILY Hold Instructions: Until you are instructed to discontinue Lovenox and then restart aspirin ascorbic acid (vitamin C) [C-500] 500 mg tablet 500 mg PO DAILY enoxaparin 80 mg/0.8 mL Syringe 80 mg subcut Q12 7 Days Qty: 11.2 0RF warfarin 5 mg tablet 5 mg PO DAILY Qty: 30 0RF Primary Care Provider: Risa Stratton Referrals: Risa Stratton, BUSINESS CONTINUITY MANAGEMENT DIRECTOR-C [Primary Care Provider] - As Needed Disposition Disposition: Home, Self Care
[2023-08-28 20:54] VITALS: BP 134/67; PULSE 72; RESP 15; O2SAT 98
== END 2023-08-28 20:55 | disposition home or self-care (01) ==
PROVIDERS: Emergency Provider Emergency Medicine; PCP Nurse Practitioner Family; Visit Provider Emergency Medicine
DX: S20.211A Contusion of right front wall of thorax, initial encounter (principal); X58.XXXA Exposure to other specified factors, initial encounter; Z79.82 Long term (current) use of aspirin; Z79.01 Long term (current) use of anticoagulants; Z79.899 Other long term (current) drug therapy; Z86.718 Personal history of other venous thrombosis and embolism; Z86.711 Personal history of pulmonary embolism; Z86.73 Personal history of transient ischemic attack (TIA), and cerebral infarction without residual deficits; Z87.891 Personal history of nicotine dependence
CPT/HCPCS: 71275; 80048; 85610; 99283; Q9967; A4216